=== PATIENT | female | born 1955 | race Two or more races ===

== ENCOUNTER 2018-01-01 03:06 | Inpatient (IN) | payer OTHER ==
[2018-01-01] VITALS (22 sets, daily range): BP systolic 74–127; BP diastolic 34–97
[~2018-01-01] VITALS: Ht 162.6 cm; Wt 69.0 kg
[2018-01-01] MEDS ORDERED: Azithromycin 500 MG in NS 275 ML IV ONE (03:30)
[2018-01-01] MEDS ORDERED: cefTRIAXone 1 GM in NS 55 ML IVPB ONE (03:30)
--- NOTE | 2018-01-01 03:34 | Emergency Room Report ---
History of Present Illness General Chief Complaint: Dyspnea/Respdistress Source: Medical Record Present Illness HPI 62F SN[facility] trach patient referred for pulse ox mid 80's. Pt. is slightly agitated. Cannot give any history. No HPI sent with patient. Paperwork:full code, anoxic brain damage trach G-tube contractures diabetes GERD hypotension seizure Dec 06 WBC 6.8, h/h 13/41, fun/creat 38/.47 Allergies: Coded Allergies: No Known Allergies (Unverified , 01/01/18) Patient History Now: No Nursing Documentation-PMH Hx Diabetes: Yes Hx Gastrointestinal Problems: Yes - GERD Hx Seizures: Yes Review of Systems Constitutional: Reports: see HPI Respiratory: Reports: see HPI, shortness of breath, wheezing All Other Systems: limited Physical Exam Vital Signs Date Time Temp Pulse Resp B/P (MAP) Pulse Ox O2 Delivery O2 Flow Rate FiO2 01/01/18 02:37 98.8 119 17 115/71 86 Simple Mask 15.0 98.8 01/01/18 03:10 60 Sp02 EP Interpretation: abnormal General Appearance: mild distress Head: atraumatic ENT: moist mucus membranes, other - trach Respiratory: rhonchi, other - trach Cardiovascular #1: tachycardia Gastrointestinal: other - g-tube Genitourinary: other - diapers Musculoskeletal: other - contractures all four Neurologic: other - agitated on arrival; after more comfortable, calm Skin: no rash Medical Decision Making Diagnostic Impression: Primary Impression: Dyspnea Additional Impressions: Respiratory distress Tracheostomy complication ER Course The RT changed the trach collar/ties and gauze; pt. much more comfortable and minimal secretions. Pulse ox 100%, breathing slightly over vent. Persistent mild tachy and rectal temp 103. Sepsis labs ordered. Admit MDM: This patient has clinical signs and symptoms concerning for sepsis and severe sepsis. Patient's symptoms have not stabilized and the patient is at risk of decompensation. The patient is admitted for careful hydration, antibiotic therapy, and infectious source control. The patients clinical condition is complicated by the comorbidities noted in the HPI/PMH. Sepsis: HR >90 yes RR >20 yes Temp not(36-38) yes WBC not(4-12) or 10% yes Severe Sepsis criteria: Infectious source: Lactate > 2.0 mmol/L no Hypotension (SBP < 90 or >40 mmHG drop or MAP < 65) no Acute Resp Failure (sat < 92% w/o oxygen) no Brand Marketing Manager > 2.0 no INR > 1.5 no Plt < 100 no Bili > 2 Sepsis Management: Time of recognition of severe sepsis/septic shock: 330 am Within 3 hours of recognition: yes Blood cultures x 2 before broad-spectrum antibiotics: yes 30 ml/kg NS bolus: yes Initial lactate: yes Repeat lactate: yes (indicated as initial lactate < 2.0) Septic Shock Assessment: NOT PRESENT AT THIS TIME Any lactic acid > 4.0 Persistent hypotension (SBP < 90 or 40 mmHg drop, MAP < 65) despite 30 mL/kg IV fluid bolus Accepting Care Team Current data and ongoing care discussed. Time: 6 am Admitting Physician: Dr. Paredes alerted Outstanding Data: The admitting physician is aware that there are pending tests and will follow those results. Critical Care: Critical care time: I spent 35 minutes critical care time including emergent fluid management while maintaining close respiratory support. Provision of immediate and broad-spectrum antibiotic therapy. Simultaneous assessment for possible sources in order to direct targeted therapy. Consideration for invasive and chemical support to prevent cardiopulmonary collapse. EKG Diagnostic Results EKG Time: 03:38 Rate: tachycardiac ST Segments: no acute changes Other Impression sinus tachy 123, possibly old ant NM Rhythm Strip Diag. Results Rhythm Strip Time: 03:39 EP Interpretation: yes Rate: 108 Other Impression sinus tachy 108 Chest X-Ray Diagnostic Results Chest X-Ray Diagnostic Results : # of Views/Limited/Complete: 1 View Indication: Shortness of Breath EP Interpretation: Yes Interpretation: no consolidation, no pneumothorax, other - no definite infiltrate; trach seen Last Vital Signs Date Time Temp Pulse Resp B/P (MAP) Pulse Ox O2 Delivery O2 Flow Rate FiO2 01/01/18 03:11 112 38 60 01/01/18 03:10 Mechanical Ventilator 01/01/18 02:37 98.8 115/71 86 15.0 98.8 Disposition: ADMITTED INPATIENT Condition: Critical Benji West M.D. Jan 01, 2018 03:34
[2018-01-01 03:49] LABS: HEMATOCRIT 40.1 % (37.0-47.0); MEAN CORPUSCULAR VOLUME 83 FL (80-99); PLATELET COUNT 300 K/UL (150-450); RED BLOOD COUNT 4.83 M/UL (4.20-5.40); RED CELL DISTRIBUTION WIDTH 16.3 % (11.6-14.8); WHITE BLOOD COUNT 15.7 K/UL (4.8-10.8)
[2018-01-01 03:59] LABS: INR 1.1 (0.9-1.1)
[2018-01-01 04:00] LABS: ANION GAP 6 mmol/L (5-15); BLOOD UREA NITROGEN 34 mg/dL (7-18); CALCIUM 8.1 MG/DL (8.5-10.1); CARBON DIOXIDE 33 MMOL/L (21-32); CHLORIDE 95 MMOL/L (98-107); CREATININE 0.7 MG/DL (0.55-1.30); SODIUM 134 MMOL/L (136-145)
[2018-01-01 04:05] LABS: ALANINE AMINOTRANSFERASE 53 U/L (12-78); ALBUMIN 2.5 G/DL (3.4-5.0); ALBUMIN/GLOBULIN RATIO 0.5 (1.0-2.7); ALKALINE PHOSPHATASE 231 U/L (46-116); ASPARTATE AMINO TRANSFERASE 58 U/L (15-37); BILIRUBIN,TOTAL 0.6 MG/DL (0.2-1.0); CREATINE KINASE 53 U/L (26-308)
[2018-01-01] MEDS ORDERED: Acetaminophen 650mg/20.3ml NG ONE (04:15)
[2018-01-01 04:46] LABS: APPEARANCE,URINE CLEAR; BILIRUBIN, URINE NEGATIVE (NEGATIVE); GLUCOSE, URINE (UA) NEGATIVE (NEGATIVE); KETONES,URINE NEGATIVE (NEGATIVE); LEUKOCYTE ESTERASE ,URINE NEGATIVE (NEGATIVE); NITRITE,URINE NEGATIVE (NEGATIVE); PH,URINE 7 (4.5-8.0); PROTEIN,URINE 2+ (NEGATIVE); UROBILINOGEN,URINE 1 MG/DL (0.0-1.0)
[2018-01-01 05:04] LABS: COLOR,URINE YELLOW
--- NOTE | 2018-01-01 05:35 | Diagnostic Imaging Report ---
EXAM: XR Chest, 1 View CLINICAL HISTORY: CP TECHNIQUE: Frontal view of the chest. COMPARISON: No relevant prior studies available. FINDINGS: Lungs: Streaky densities in the lower lungs likely atelectasis/scarring. Dense retrocardiac opacity which may reflect atelectasis or developing infiltrate. Pleural space: Tiny left effusion difficult to entirely exclude. No gross pneumothorax. Heart: Prominent cardiopericardial silhouette accentuated by low lung volume and rotated position. Mediastinum: Dense opacity projecting over the left hilar/mediastinal region which may partly reflect overlying artifact. Bones/joints: Unremarkable. Vasculature: Tortuous thoracic aorta noted. Tubes, lines and devices: Tracheostomy tube present. Electrodes/nerve stimulators projecting over the thoracic spine. IMPRESSION: Rotated position and low lung volumes limit evaluation. Probable bibasilar atelectasis. Follow-up recommended to exclude developing retrocardiac infiltrate or tiny left effusion. Borderline cardiomegaly
[2018-01-01] MEDS ORDERED: PHENOBARBI20 MG/5 ML GT (06:11)
[2018-01-01] MEDS ORDERED: LOVENOX40 MG/0.4 SUBQ (06:11)
[2018-01-01] MEDS ORDERED: PRO-AMATINE10 MG ORAL (06:11)
[2018-01-01] MEDS ORDERED: KEPPRA LIQ100 MG/1 M ORAL (06:11)
[2018-01-01] MEDS ORDERED: ALBUTEROL2.5 MG/3 M INH (06:11)
[2018-01-01] MEDS ORDERED: FUROSEMIDE40 MG GT (06:11)
[2018-01-01] MEDS ORDERED: METOLAZONE5 MG GT (06:11)
[2018-01-01] MEDS ORDERED: ZANTAC150 MG GT (06:11)
[2018-01-01] MEDS ORDERED: POTASSIUM CHLO20 ME2 GT (06:11)
[2018-01-01] MEDS ORDERED: IPRATROPIU0.2 MG/1 M HHN (06:11)
[2018-01-01] MEDS ORDERED: ACETAMINOP160 MG/5 M ORAL (06:11)
[2018-01-01] MEDS ORDERED: PERIDEX15 ML MM (06:11)
[2018-01-01] MEDS ORDERED: SYNTHROID50 MCG GT (06:11)
[2018-01-01] MEDS ORDERED: CRANBERRY425 MG GT (06:11)
[2018-01-01] MEDS ORDERED: Ibuprofen Susp 100mg/5ml ORAL ONE (06:15)
[2018-01-01] MEDS ORDERED: Cefepime HCl 2 GM in NS 110 ML IV SCH (07:00)
[2018-01-01] MEDS ORDERED: Miralax 17gm pkt ORAL PRN (09:30)
[2018-01-01] MEDS ORDERED: Morphine Sulfate 4mg/ml Inj (IV USE ONLY) IVP PRN (09:30)
[2018-01-01] MEDS ORDERED: Albuterol/Ipratropium 3ml neb HHN PRN (09:30)
[2018-01-01] MEDS ORDERED: LORazepam Inj 2mg/ml 1ml IV PRN (09:30)
[2018-01-01] MEDS ORDERED: Amikacin Rx to dose MISC PRN (10:15)
--- NOTE | 2018-01-01 10:48 | Consultation ---
Consult Note Consult Note asked to eval for low bp and oliguria 62F SNF trach patient referred for pulse ox mid 80's. Pt. is slightly agitated. Cannot give any history. No HPI sent with patient. 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
[2018-01-01] MEDS: NovoLOG Insulin Flexpen SUBQ SCH ×3 (11:30→23:55)
[2018-01-01] MEDS ORDERED: Vancomycin 1.5 GM/D5W 250ML IVPB ONE (12:00)
[2018-01-01] MEDS ORDERED: Ertapenem 1 GM in NS 55 ML IV SCH ×2 (14:00→16:00)
[2018-01-01] MEDS ORDERED: Amikacin 850 MG in NS 110 ML IV SCH ×2 (15:00→18:00)
--- NOTE | 2018-01-01 15:23 | Pulmonolgy Critical Care Note ---
Critical Care - Asmt/Plan Assessment/Plan: Pulmonary CCM Consultation History of Present Illness 62F SNF trach patient referred for pulse ox mid 80's. Pt. is slightly agitated. Cannot give any history. No HPI sent with patient. Noted to have basal infiltrates, possible retrocardiac infiltarte Patient is full code PMH: anoxic brain damage trach G-tube contractures diabetes GERD hypotension seizure Nov 11 WBC 6.8, h/h 13/41, fun/creat 38/.47 Allergies: Coded Allergies: No Known Allergies (Unverified , 01/01/18) Patient History Now: No Nursing Documentation-PMH Hx Diabetes: Yes Hx Gastrointestinal Problems: Yes - GERD Hx Seizures: Yes Review of Systems Constitutional: Reports: see HPI Respiratory: Reports: see HPI, shortness of breath, wheezing All Other Systems: limited Physical Exam Vital Signs Date Time Temp Pulse Resp B/P (MAP) Pulse Ox O2 Delivery O2 Flow Rate FiO2 01/01/18 02:37 98.8 119 17 115/71 86 Simple Mask 15.0 98.8 01/01/18 03:10 60 Sp02 EP Interpretation: abnormal General Appearance: mild distress Head: atraumatic ENT: moist mucus membranes, other - trach Respiratory: rhonchi, other - trach Cardiovascular #1: tachycardia Gastrointestinal: other - g-tube Genitourinary: other - diapers Musculoskeletal: other - contractures all four Neurologic: other - agitated on arrival; after more comfortable, calm Skin: no rash Medical Decision Making Impression: Dyspnea Respiratory distress, Pneumonia Tracheostomy complication anoxic brain damage Previous tracheostomy G-tube contractures diabetes GERD hypotension seizure Plan Continue current ventilator settings Broad spectrum antibiotics HHN O2 for sats 90-96% 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 Aspiration precautions Sepsis: HR >90 yes RR >20 yes Temp not(36-38) yes WBC not(4-12) or 10% yes Severe Sepsis criteria: Infectious source: Lactate > 2.0 mmol/L no Hypotension (SBP < 90 or >40 mmHG drop or MAP < 65) no Acute Resp Failure (sat < 92% w/o oxygen) no Cosmetologist > 2.0 no INR > 1.5 no Plt < 100 no Bili > 2 Sepsis Management: Time of recognition of severe sepsis/septic shock: 330 am Within 3 hours of recognition: yes Blood cultures x 2 before broad-spectrum antibiotics: yes 30 ml/kg NS bolus: yes Initial lactate: yes Repeat lactate: yes (indicated as initial lactate < 2.0) Septic Shock Assessment: NOT PRESENT AT THIS TIME Any lactic acid > 4.0 Persistent hypotension (SBP < 90 or 40 mmHg drop, MAP < 65) despite 30 mL/kg IV fluid bolus EKG Time: 03:38 Rate: tachycardiac ST Segments: no acute changes Other Impression sinus tachy 123, possibly old ant DC Rhythm Strip Diag. Results Rhythm Strip Time: 03:39 EP Interpretation: yes Rate: 108 Other Impression sinus tachy 108 Chest X-Ray Diagnostic Results Chest X-Ray Diagnostic Results : # of Views/Limited/Complete: 1 View Indication: Shortness of Breath EP Interpretation: Yes Interpretation: no consolidation, no pneumothorax, other - no definite infiltrate; trach seen Last Vital Signs Date Time Temp Pulse Resp B/P (MAP) Pulse Ox O2 Delivery O2 Flow Rate FiO2 01/01/18 03:11 112 38 60 01/01/18 03:10 Mechanical Ventilator 01/01/18 02:37 98.8 115/71 86 15.0 98.8 Critical Care - Objective Last 24 Hour Vital Signs Date Time Temp Pulse Resp B/P (MAP) Pulse Ox O2 Delivery O2 Flow Rate FiO2 01/01/18 14:35 85 16 40 01/01/18 14:00 85 20 111/62 (78) 97 01/01/18 13:00 78 20 101/74 (83) 98 01/01/18 12:46 77 16 40 01/01/18 12:00 50.0 01/01/18 12:00 97.5 75 16 110/81 (91) 98 97.5 01/01/18 12:00 Mechanical Ventilator 01/01/18 11:00 78 20 99/61 (74) 98 01/01/18 10:46 77 18 50 01/01/18 10:00 77 20 96/66 (76) 100 01/01/18 09:31 82 18 50 01/01/18 09:00 81 20 110/81 (91) 99 01/01/18 08:31 85 14 50 01/01/18 08:20 Mechanical Ventilator 01/01/18 08:20 Mechanical Ventilator 01/01/18 08:20 90 01/01/18 08:20 50 01/01/18 08:20 99.5 88 20 127/97 (107) 100 99.5 01/01/18 08:20 50.0 01/01/18 08:12 88 17 60 01/01/18 08:11 99.7 82 15 77/57 100 Mechanical Ventilator 15.0 60 99.7 93 01/01/18 07:50 99.7 93 15 77/57 100 Mechanical Ventilator 15.0 60 99.7 01/01/18 07:15 86 15 60 01/01/18 07:15 79 15 Mechanical Ventilator 60 01/01/18 06:30 102.7 82 20 95/60 100 Mechanical Ventilator 15.0 60 102.7 01/01/18 06:16 102.7 01/01/18 05:26 79 15 60 01/01/18 04:30 105 15 94/77 100 Mechanical Ventilator 15.0 60 01/01/18 04:19 98.8 01/01/18 03:30 60 01/01/18 03:11 112 38 60 01/01/18 03:10 103.3 108 18 98/59 100 Mechanical Ventilator 15.0 60 103.3 01/01/18 03:10 108 18 Mechanical Ventilator 15.0 60 01/01/18 03:10 112 38 Mechanical Ventilator 60 01/01/18 02:37 98.8 119 17 115/71 86 Simple Mask 15.0 98.8 Accucheck: 107 Critical Care - Subjective ROS Limited/Unobtainable: Yes Condition: critical FI02: 40 Vent Support Breath Rate: 16 Vent Support Mode: AC Vent Tidal Volume: 600 Sputum Amount: Moderate PEEP: 5.0 PIP: 36 I&O: Intake and Output 12/31/17 01/01/18 19:00 07:00 Intake Total 0 ml Balance 0 ml Intake Oral 0 ml Kit Light MD Jan 01, 2018 15:23
--- NOTE | 2018-01-01 16:20 | History & Physical ---
History and Physical History & Physicial Dictated for Int Med-Dr Paredes no. [id number]. ICU Miguel Roca MD Jan 01, 2018 16:20
--- NOTE | 2018-01-01 19:19 | Consultation ---
History of Present Illness General Date patient seen: Jan 01, 2018 Time patient seen: 19:12 Chief Complaint: Dyspnea/Respdistress Present Illness HPI Patient brought in by ambulance from [facility] for low O2 saturation. Per EMS patient was at 86% on scene. Patient placed on ventilator upon arrival and trach adjusted, patient SpO2 at 100% on ventilator. Patient is non verbal, which is baseline, non ambulatory. Patient has a trach and a Gtube. Cardiology consulted for elevated troponin and pericardial effusion. Allergies: Coded Allergies: No Known Allergies (Unverified , 01/01/18) Medication History Scheduled Cranberry Extract (Cranberry), 425 MG GT DAILY, (Reported) Enoxaparin (Lovenox), 40 MG SUBQ DAILY, (Reported) Furosemide* (Lasix*), 40 MG GT TWICE A DAY, (Reported) Levetiracetam (Keppra), 10 ML ORAL BID, (Reported) Levothyroxine Sodium (Synthroid), 50 MCG GT DAILY, (Reported) Metolazone (Metolazone), 5 MG GT BID, (Reported) Midodrine (Midodrine HCl), 10 MG ORAL THREE TIMES A DAY, (Reported) Potassium Chloride (Potassium Chloride), 20 MEQ GT DAILY, (Reported) Ranitidine Hcl* (Zantac*), 150 MG GT DAILY, (Reported) Scheduled PRN Acetaminophen 160MG/5ML* (Acetaminophen*), 20.3 ML ORAL THREE TIMES A DAY PRN for Fever/Headache/Mild Pain, (Reported) Albuterol Sulfate* (Albuterol Sulfate Hhn*), 3 ML INH Q3HR PRN for Shortness of Breath, (Reported) Ipratropium Randolph 0.5MG/2.5ML (Ipratropium Randolph 0.5MG/2.5ML), 0.5 MG HHN Q6H PRN for Shortness of Breath, (Reported) Miscellaneous Medications Chlorhexidine Gluconate (Peridex), 15 ML MM, (Reported) Chlorhexidine Gluconate (Peridex), 15 ML MM, (Reported) Phenobarbital (Phenobarbital), 20 MG GT, (Reported) Patient History Healthcare decision maker Shree Anders Resuscitation status Full Code Advanced Directive on File No Physical Exam Last 24 Hour Vital Signs Date Time Temp Pulse Resp B/P (MAP) Pulse Ox O2 Delivery O2 Flow Rate FiO2 01/01/18 19:00 76 16 90/59 (69) 100 01/01/18 18:51 78 16 Mechanical Ventilator 40 01/01/18 18:51 78 16 40 01/01/18 18:00 83 20 94/67 (76) 99 01/01/18 17:25 86 17 40 01/01/18 17:00 71 20 99/54 (69) 99 01/01/18 16:00 Mechanical Ventilator 01/01/18 16:00 79 01/01/18 16:00 98.9 70 16 94/53 (67) 97 98.9 01/01/18 16:00 50.0 01/01/18 15:00 84 20 105/67 (80) 99 01/01/18 14:35 85 16 40 01/01/18 14:00 85 20 111/62 (78) 97 01/01/18 13:00 78 20 101/74 (83) 98 01/01/18 12:46 77 16 40 01/01/18 12:00 50.0 01/01/18 12:00 97.5 75 16 110/81 (91) 98 97.5 01/01/18 12:00 Mechanical Ventilator 01/01/18 12:00 73 01/01/18 11:00 78 20 99/61 (74) 98 01/01/18 10:46 77 18 50 01/01/18 10:00 77 20 96/66 (76) 100 01/01/18 09:31 82 18 50 01/01/18 09:00 81 20 110/81 (91) 99 01/01/18 08:31 85 14 50 01/01/18 08:20 Mechanical Ventilator 01/01/18 08:20 Mechanical Ventilator 01/01/18 08:20 90 01/01/18 08:20 50 01/01/18 08:20 99.5 88 20 127/97 (107) 100 99.5 01/01/18 08:20 50.0 01/01/18 08:12 88 17 60 01/01/18 08:11 99.7 82 15 77/57 100 Mechanical Ventilator 15.0 60 99.7 93 01/01/18 07:50 99.7 93 15 77/57 100 Mechanical Ventilator 15.0 60 99.7 01/01/18 07:15 86 15 60 10/7/18 07:15 79 15 Mechanical Ventilator 60 01/01/18 06:30 102.7 82 20 95/60 100 Mechanical Ventilator 15.0 60 102.7 01/01/18 06:16 102.7 01/01/18 05:26 79 15 60 01/01/18 04:30 105 15 94/77 100 Mechanical Ventilator 15.0 60 01/01/18 04:19 98.8 01/01/18 03:30 60 01/01/18 03:11 112 38 60 01/01/18 03:10 103.3 108 18 98/59 100 Mechanical Ventilator 15.0 60 103.3 01/01/18 03:10 108 18 Mechanical Ventilator 15.0 60 01/01/18 03:10 112 38 Mechanical Ventilator 60 01/01/18 02:37 98.8 119 17 115/71 86 Simple Mask 15.0 98.8 Intake and Output 12/31/17 01/01/18 19:00 07:00 Intake Total 0 ml Balance 0 ml Intake Oral 0 ml Laboratory Tests Test 01/01/18 03:30 01/01/18 04:00 01/01/18 14:40 01/01/18 17:15 White Blood Count 15.7 K/UL (4.8-10.8) H Red Blood Count 4.83 M/UL (4.20-5.40) Hemoglobin 13.0 G/DL (12.0-16.0) Hematocrit 40.1 % (37.0-47.0) Mean Corpuscular Volume 83 FL (80-99) Mean Corpuscular Hemoglobin 27.0 PG (27.0-31.0) Mean Corpuscular Hemoglobin Concent 32.5 G/DL (32.0-36.0) Red Cell Distribution Width 16.3 % (11.6-14.8) H Platelet Count 300 K/UL (150-450) Mean Platelet Volume 7.4 FL (6.5-10.1) Neutrophils (%) (Auto) % (45.0-75.0) Lymphocytes (%) (Auto) % (20.0-45.0) Monocytes (%) (Auto) % (1.0-10.0) Eosinophils (%) (Auto) % (0.0-3.0) Basophils (%) (Auto) % (0.0-2.0) Differential Total Cells Counted 100 Neutrophils % (Manual) 87 % (45-75) H Lymphocytes % (Manual) 6 % (20-45) L Monocytes % (Manual) 6 % (1-10) Eosinophils % (Manual) 0 % (0-3) Basophils % (Manual) 0 % (0-2) Band Neutrophils 1 % (0-8) Platelet Estimate Adequate Platelet Morphology Normal Anisocytosis 1+ Prothrombin Time 11.3 SEC (9.30-11.50) Prothromb Time International Ratio 1.1 (0.9-1.1) Sodium Level 134 MMOL/L (136-145) L Potassium Level 3.0 MMOL/L (3.5-5.1) L Chloride Level 95 MMOL/L (98-107) L Carbon Dioxide Level 33 MMOL/L (21-32) H Anion Gap 6 mmol/L (5-15) Blood Urea Nitrogen 34 mg/dL (7-18) H Creatinine 0.7 MG/DL (0.55-1.30) Estimat Glomerular Filtration Rate > 60 mL/min (>60) Glucose Level 121 MG/DL (74-106) H Lactic Acid Level 1.90 mmol/L (0.4-2.0) Calcium Level 8.1 MG/DL (8.5-10.1) L Total Bilirubin 0.6 MG/DL (0.2-1.0) Aspartate Amino Transf (AST/SGOT) 58 U/L (15-37) H Alanine Aminotransferase (ALT/SGPT) 53 U/L (12-78) Alkaline Phosphatase 231 U/L (46-116) H Total Creatine Kinase 53 U/L (26-308) Troponin I 0.085 ng/mL (0.000-0.056) 0.842 ng/mL (0.000-0.056) C-Reactive Protein, Quantitative 6.5 mg/dL (0.00-0.90) H Total Protein 7.5 G/DL (6.4-8.2) Albumin 2.5 G/DL (3.4-5.0) L Globulin 5.0 g/dL Albumin/Globulin Ratio 0.5 (1.0-2.7) L Phenobarbital Level 27.7 ug/mL (15-40) Urine Color Yellow Urine Appearance Clear Urine pH 7 (4.5-8.0) Urine Specific [place] 1.005 (1.005-1.035) Urine Protein 2+ (NEGATIVE) H Urine Glucose (UA) Negative (NEGATIVE) Urine Ketones Negative (NEGATIVE) Urine Blood Negative (NEGATIVE) Urine Nitrite Negative (NEGATIVE) Urine Bilirubin Negative (NEGATIVE) Urine Urobilinogen 1 MG/DL (0.0-1.0) H Urine Leukocyte Esterase Negative (NEGATIVE) Urine RBC 0-2 /HPF (0 - 2) Urine WBC 0-2 /HPF (0 - 2) Urine Squamous Epithelial Cells Few /LPF (NONE/OCC) Urine Amorphous Sediment Few /LPF (NONE) H Urine Bacteria Occasional /HPF (NONE) Urine Random Sodium 49 mmol/L (20-110) Arterial Blood pH 7.534 (7.350-7.450) Arterial Blood Partial Pressure CO2 25.9 mmHg (35.0-45.0) L Arterial Blood Partial Pressure O2 82.8 mmHg (75.0-100.0) Arterial Blood HCO3 21.4 mmol/L (22.0-26.0) L Arterial Blood Oxygen Saturation 96.1 % (95-100) Arterial Blood Base Excess -0.1 (-2-2) [place] Test Positive Height (Feet): 5 Height (Inches): 4.00 Weight (Pounds): 150 Medications Current Medications Medications (Trade) Dose Ordered Sig/Anthony Route PRN Reason Start Time Stop Time Status Last Admin Dose Admin Acetaminophen (Tylenol) 650 mg Q4H PRN ORAL fever (temp>100.5F) 01/01/18 09:30 01/31/18 09:29 Albuterol/ Ipratropium (Albuterol/ Ipratropium) 3 ml Q4H PRN HHN Shortness of Breath 01/01/18 09:30 01/06/18 09:29 Amikacin Protocol (Amikacin pharmacy to dose) 1 ea DAILY PRN MISC PER RX PROTOCOL 01/01/18 10:15 01/31/18 10:14 Amikacin Sulfate 850 mg/Sodium Chloride 113.4 ml @ 226.8 mls/ hr Q24H IV 01/01/18 18:00 01/08/18 17:59 01/01/18 18:26 Dextrose (Dextrose 50%) 25 ml Q30M PRN IV Hypoglycemia 01/01/18 10:15 01/31/18 10:04 Dextrose (Dextrose 50%) 50 ml Q30M PRN IV hypoglycemia 01/01/18 10:15 01/31/18 10:14 Ertapenem 1 gm/ Sodium Chloride 55 ml @ 110 mls/hr Q24H IV 01/01/18 16:00 01/06/18 15:59 01/01/18 17:30 Heparin Sodium (Porcine) (Heparin 5000 units/ml) 5,000 units EVERY 12 HOURS SUBQ 01/01/18 21:00 01/31/18 20:59 Insulin Aspart (NovoLOG) EVERY 6 HOURS SUBQ 01/02/18 00:00 01/31/18 11:29 Lorazepam (Ativan 2mg/ml 1ml) 2 mg Q2H PRN IV For Anxiety 01/01/18 09:30 01/08/18 09:29 Norepinephrine Bitartrate 4 mg/ Dextrose 254 ml @ 0 mls/hr Q24H IV 01/01/18 10:00 01/31/18 09:59 Ondansetron HCl (Zofran) 4 mg Q6H PRN IVP Nausea & Vomiting 01/01/18 09:30 01/31/18 09:29 Pantoprazole (Protonix) 40 mg DAILY IVP 01/02/18 09:00 02/01/18 08:59 Polyethylene Glycol (Miralax) 17 gm DAILYPRN PRN ORAL Constipation 01/01/18 09:30 01/31/18 09:29 Potassium Chloride 100 ml @ 100 mls/hr ONCE IVPB 01/01/18 18:41 01/01/18 19:41 Sodium Chloride 1,000 ml @ 150 mls/hr Q6H40M IVLG 01/01/18 12:30 01/31/18 12:29 01/01/18 12:30 Vancomycin HCl (Vanco rx to dose) 1 ea DAILY PRN MISC PER RX PROTOCOL 01/01/18 10:15 01/31/18 10:14 Vancomycin/Sodium Chloride 250 ml @ 166.667 mls/hr Q12HR@0000,1200 IVPB 01/02/18 00:00 01/07/18 00:00 Assessment/Plan Status: stable Assessment/Plan Assessment: anoxic brain damage trach/G-tube contractures diabetes GERD hypotension seizure septic shock PNA electrolyte abnormalities Hypoalbuminemia , Proteinuria Plan: Echocardiogram reviewed, no indication for pericardiocentesis IV fluids to increase intracardiac pressures Monitor hemodynamics. Serial EKG/Troponin - may need heparin if troponin continues to rise No indication for cath Follow cultures IV Abx Pressors prn Monitor urine output Supportive care Kit Campuzano MD Jan 01, 2018 19:19
[2018-01-01] MEDS: Heparin 5000 units/ml inj SUBQ SCH (21:00)
--- NOTE | 2018-01-01 22:04 | Consultation ---
Consult Note Consult Note [id number] Jh Johns MD Jan 01, 2018 22:04
[2018-01-01] MEDS: Cefepime HCl 2 GM in D5W 55 ML IVPB SCH (22:45)
[2018-01-01] MEDS ORDERED: Vancomycin 1 GM in D5W 275 ML IV SCH (23:45)
[2018-01-02] VITALS (15 sets, daily range): BP systolic 93–122; BP diastolic 48–82
[2018-01-02] MEDS ORDERED: Vancomycin 750mg/NS 250ml IVPB SCH
[2018-01-02] MEDS: NovoLOG Insulin Flexpen SUBQ SCH ×3 (05:57→17:02)
[2018-01-02 06:25] LABS: BASOPHILS % (AUTO) 0.4 % (0.0-2.0); EOSINOPHILS % (AUTO) 0.1 % (0.0-3.0); HEMATOCRIT 39.4 % (37.0-47.0); HEMOGLOBIN 12.9 G/DL (12.0-16.0); LYMPHOCYTES % (AUTO) 14.2 % (20.0-45.0); MEAN CORPUSCULAR VOLUME 84 FL (80-99); MONOCYTES % (AUTO) 8.2 % (1.0-10.0); NEUTROPHILS % (AUTO) 77.2 % (45.0-75.0); PLATELET COUNT 270 K/UL (150-450); WHITE BLOOD COUNT 9.7 K/UL (4.8-10.8)
[2018-01-02 06:47] LABS: IRON 33 ug/dL (50-175); TOTAL IRON BINDING CAPACITY 348 ug/dL (250-450)
[2018-01-02 06:53] LABS: % IRON SATURATION 9 % (15-50)
[2018-01-02 06:54] LABS: ALANINE AMINOTRANSFERASE 41 U/L (12-78); ALBUMIN 2.1 G/DL (3.4-5.0); ALBUMIN/GLOBULIN RATIO 0.5 (1.0-2.7); ALKALINE PHOSPHATASE 199 U/L (46-116); ANION GAP 12 mmol/L (5-15); ASPARTATE AMINO TRANSFERASE 45 U/L (15-37); BILIRUBIN,TOTAL 0.5 MG/DL (0.2-1.0); BLOOD UREA NITROGEN 32 mg/dL (7-18); CALCIUM 7.8 MG/DL (8.5-10.1); CARBON DIOXIDE 23 MMOL/L (21-32); CHLORIDE 103 MMOL/L (98-107); CHOLESTEROL 138 MG/DL (< 200); CREATININE 0.8 MG/DL (0.55-1.30); FERRITIN 71 NG/ML (8-388); HDL CHOLESTEROL 27 MG/DL (40-60); POTASSIUM 3.3 MMOL/L (3.5-5.1); SODIUM 138 MMOL/L (136-145); TRIGLYCERIDES 90 MG/DL (30-150)
[2018-01-02 07:44] LABS: GAMMA GLUTAMYL TRANSPEPTIDASE 403 U/L (5-85); PHOSPHORUS 2.6 MG/DL (2.5-4.9)
[2018-01-02] MEDS: Heparin 5000 units/ml inj SUBQ SCH ×2 (08:52→20:16)
[2018-01-02] MEDS ORDERED: Pantoprazole Inj IVP SCH (09:00)
[2018-01-02] MEDS: Cefepime HCl 2 GM in D5W 55 ML IVPB SCH ×2 (09:00→21:00)
--- NOTE | 2018-01-02 09:26 | Cardiology Report ---
APPROVED REPORT EXAM: Two-dimensional and M-mode echocardiogram with Doppler and color Doppler. INDICATION EJECTION FRACTION M-Mode DIMENSIONS IVSd1.5 (0.7-1.1cm)Left Atrium (MM)2.8 (1.6-4.0cm) LVDd2.4 (3.5-5.6cm)Aortic Root3.1 (2.0-3.7cm) PWd1.8 (0.7-1.1cm)Aortic Cusp Exc.0.9 (1.5-2.0cm) IVSs1.3 cm LVDs1.8 (2.5-4.0cm) PWs1.3 cm Technically difficult study due to poor acoustical windows. Normal left ventricular chamber size, systolic function and wall motion. Left ventricular ejection fraction estimated to be 55%. Mild left ventricular hypertrophy by 2-D. Moderate pericardial effusion present with evidence of left atrial collapse, suggestive of pericardial tamponade. Normal left atrial chamber size Moderate to severe Right atrial and right ventricular enlargement with D- shaped septum is suggestive of increaed pressure and volume overload. Focal aortic valve sclerosis with reduced cusp excursion, suggestive moderate severe aortic stenosis . Thickened mitral valve leaflets with normal excursion. Mitral annulus and aortic root calcification. Pulmonic valve not well visualized. Normal tricuspid valve structure. IVC dilated at size 2.0 without physiological collapse suggestive increase RA pressure . A color flow and spectral Doppler study was performed and revealed: Moderate aortic insufficiency. Peak aortic valve gradient of 49 mm Hg and a mean of 32 mmHg. Aortic valve area 1.0 cm2 calculated by continuity equation. Mild mitral regurgitation. Mitral diastolic velocities suggest reduced left ventricular relaxation c/w mild LV diastolic dysfunction (Grade I ). Transmitral flow velocity do not vary with respiratory cycles. Moderate tricuspid regurgitation. Tricuspid systolic velocities suggests peak right ventricular systolic pressure of 71mmHg consistent with severe pulmonary hypertension .
--- NOTE | 2018-01-02 10:01 | Pulmonolgy Critical Care Note ---
Critical Care - Asmt/Plan Problems: (1) Acute on chronic respiratory failure (2) Pneumonia (3) Vegetative state (4) Anoxic brain damage (5) Feeding by G-tube (6) Diabetes mellitus Respiratory: monitor respiratory rate, adjust FIO2 Cardiac: continue to monitor HR/BP Renal: F/U I&O, keep IV fluid Infectious Disease: check cultures Gastrointestinal: continue feedings/current rate Endocrine: monitor blood sugar, check HgA1C Neurologic: PRN Ativan Prophylaxis: Heparin Notes Reviewed: lock setter, cardio Discussed with: nurses, consultants, caseworker protective servicescondominium manager - Objective Last 24 Hour Vital Signs Date Time Temp Pulse Resp B/P (MAP) Pulse Ox O2 Delivery O2 Flow Rate FiO2 01/02/18 09:00 81 16 93/59 (70) 100 01/02/18 08:57 94 18 40 01/02/18 08:00 98.9 77 16 98/50 (66) 100 98.9 01/02/18 08:00 85 01/02/18 08:00 Mechanical Ventilator 01/02/18 08:00 40 01/02/18 07:05 91 16 40 01/02/18 07:03 89 16 Mechanical Ventilator 40 01/02/18 07:00 80 16 99/48 (65) 100 01/02/18 06:00 91 16 114/68 (83) 100 01/02/18 05:10 94 18 40 01/02/18 05:00 92 16 100/57 (71) 100 01/02/18 04:00 40 01/02/18 04:00 91 01/02/18 04:00 Mechanical Ventilator 01/02/18 04:00 97.6 87 16 101/63 (76) 100 97.6 01/02/18 03:02 92 16 40 01/02/18 03:00 90 16 122/68 (86) 100 01/02/18 02:00 85 16 93/49 (64) 100 01/02/18 01:00 88 16 98/68 (78) 100 01/02/18 00:56 87 16 40 01/02/18 00:00 Mechanical Ventilator 01/02/18 00:00 97.2 85 16 98/64 (75) 100 97.2 01/01/18 23:00 89 16 104/75 (85) 100 01/01/18 22:36 90 16 40 01/01/18 22:00 88 16 98/74 (82) 98 01/01/18 21:30 84 16 109/56 (73) 100 01/01/18 21:10 90 16 40 01/01/18 21:00 89 16 104/65 (78) 100 01/01/18 20:30 80 16 74/59 (64) 100 01/01/18 20:00 97.8 74 16 90/34 (52) 100 97.8 01/01/18 20:00 40 01/01/18 20:00 Mechanical Ventilator 01/01/18 20:00 87 01/01/18 19:00 76 16 90/59 (69) 100 01/01/18 18:51 78 16 Mechanical Ventilator 40 01/01/18 18:51 78 16 40 01/01/18 18:00 83 20 94/67 (76) 99 01/01/18 17:25 86 17 40 01/01/18 17:00 71 20 99/54 (69) 99 01/01/18 16:00 Mechanical Ventilator 01/01/18 16:00 79 01/01/18 16:00 98.9 70 16 94/53 (67) 97 98.9 01/01/18 16:00 50.0 01/01/18 15:00 84 20 105/67 (80) 99 01/01/18 14:35 85 16 40 01/01/18 14:00 85 20 111/62 (78) 97 01/01/18 13:00 78 20 101/74 (83) 98 01/01/18 12:46 77 16 40 01/01/18 12:00 50.0 01/01/18 12:00 97.5 75 16 110/81 (91) 98 97.5 01/01/18 12:00 Mechanical Ventilator 01/01/18 12:00 73 01/01/18 11:00 78 20 99/61 (74) 98 01/01/18 10:46 77 18 50 01/01/18 10:00 77 20 96/66 (76) 100 Status: awake Condition: critical HEENT: atraumatic Lungs: clear Heart: HR/BP stable Abdomen: soft, active bowel sounds Extremities: no C/C/E Decubiti: location Micro: Microbiology Date/Time Source Procedure Growth Status 01/01/18 03:30 Blood Blood Culture - Preliminary NO GROWTH AFTER 24 HOURS Resulted 01/01/18 03:15 Blood Blood Culture - Preliminary NO GROWTH AFTER 24 HOURS Resulted Accucheck: 103 Critical Care - Subjective Condition: critical EKG Rhythm: Sinus Rhythm FI02: 40 Vent Support Breath Rate: 16 Vent Support Mode: AC Vent Tidal Volume: 600 Sputum Amount: Small PEEP: 5.0 PIP: 31 Tube Feeding Amount: 10 I&O: Intake and Output 01/01/18 01/02/18 19:00 07:00 Intake Total 1025 ml 2003.4 ml Output Total 740 ml 710 ml Balance 285 ml 1293.4 ml IV Total 1025 ml 1983.4 ml Tube Feeding 20 ml Output Urine Total 740 ml 710 ml # Bowel Movements 2 2 CXR: trach in place Labs: Laboratory Tests Test 01/01/18 14:40 01/01/18 17:15 01/02/18 04:00 01/02/18 08:24 Arterial Blood pH 7.534 (7.350-7.450) 7.548 (7.350-7.450) Arterial Blood Partial Pressure CO2 25.9 mmHg (35.0-45.0) L 26.9 mmHg (35.0-45.0) L Arterial Blood Partial Pressure O2 82.8 mmHg (75.0-100.0) 93.1 mmHg (75.0-100.0) Arterial Blood HCO3 21.4 mmol/L (22.0-26.0) L 22.9 mmol/L (22.0-26.0) Arterial Blood Oxygen Saturation 96.1 % (95-100) 97.2 % (95-100) Arterial Blood Base Excess -0.1 (-2-2) 1.6 (-2-2) [place] Test Positive Positive Troponin I 0.842 ng/mL (0.000-0.056) 0.366 ng/mL (0.000-0.056) White Blood Count 9.7 K/UL (4.8-10.8) Red Blood Count 4.70 M/UL (4.20-5.40) Hemoglobin 12.9 G/DL (12.0-16.0) Hematocrit 39.4 % (37.0-47.0) Mean Corpuscular Volume 84 FL (80-99) Mean Corpuscular Hemoglobin 27.4 PG (27.0-31.0) Mean Corpuscular Hemoglobin Concent 32.7 G/DL (32.0-36.0) Red Cell Distribution Width 17.0 % (11.6-14.8) H Platelet Count 270 K/UL (150-450) Mean Platelet Volume 7.7 FL (6.5-10.1) Neutrophils (%) (Auto) 77.2 % (45.0-75.0) H Lymphocytes (%) (Auto) 14.2 % (20.0-45.0) L Monocytes (%) (Auto) 8.2 % (1.0-10.0) Eosinophils (%) (Auto) 0.1 % (0.0-3.0) Basophils (%) (Auto) 0.4 % (0.0-2.0) Sodium Level 138 MMOL/L (136-145) Potassium Level 3.3 MMOL/L (3.5-5.1) L Chloride Level 103 MMOL/L (98-107) Carbon Dioxide Level 23 MMOL/L (21-32) Anion Gap 12 mmol/L (5-15) Blood Urea Nitrogen 32 mg/dL (7-18) H Creatinine 0.8 MG/DL (0.55-1.30) Estimat Glomerular Filtration Rate > 60 mL/min (>60) Glucose Level 119 MG/DL (74-106) H Hemoglobin A1c 6.0 % (4.3-6.0) Lactic Acid Level 2.00 mmol/L (0.4-2.0) Uric Acid 7.1 MG/DL (2.6-7.2) Calcium Level 7.8 MG/DL (8.5-10.1) L Phosphorus Level 2.6 MG/DL (2.5-4.9) Magnesium Level 1.8 MG/DL (1.8-2.4) Iron Level 33 ug/dL (50-175) L Total Iron Binding Capacity 348 ug/dL (250-450) Percent Iron Saturation 9 % (15-50) L Unsaturated Iron Binding 315 ug/dL (112-346) Ferritin 71 NG/ML (8-388) Total Bilirubin 0.5 MG/DL (0.2-1.0) Gamma Glutamyl Transpeptidase 403 U/L (5-85) H Aspartate Amino Transf (AST/SGOT) 45 U/L (15-37) H Alanine Aminotransferase (ALT/SGPT) 41 U/L (12-78) Alkaline Phosphatase 199 U/L (46-116) H Pro-B-Type Natriuretic Peptide 5851 pg/mL (0-125) H Total Protein 6.7 G/DL (6.4-8.2) Albumin 2.1 G/DL (3.4-5.0) L Globulin 4.6 g/dL Albumin/Globulin Ratio 0.5 (1.0-2.7) L Triglycerides Level 90 MG/DL (30-150) Cholesterol Level 138 MG/DL (< 200) LDL Cholesterol 95 mg/dL (<100) HDL Cholesterol 27 MG/DL (40-60) L Cholesterol/HDL Ratio 5.1 (3.3-4.4) H Vitamin B12 Level 1068 PG/ML (193-986) H Folate 45.6 NG/ML (8.6-58.9) Thyroid Stimulating Hormone (TSH) 4.743 uiU/mL (0.358-3.740) Cortisol AM Sample Pending Random Amikacin Level < 2.6 ug/mL Vancomycin Level Trough 19.2 ug/mL (5.0-12.0) H James Walter MD Jan 02, 2018 10:01
--- NOTE | 2018-01-02 11:00 | Diagnostic Imaging Report ---
Indication: Dyspnea Comparison: 01/01/2018 A single view chest radiograph was obtained. Findings: There is a retrocardiac opacity silhouetting out the left hemidiaphragm. Tracheostomy is noted. Spinal stimulation wires are present in the mid thoracic spine as well as in the upper thoracic spine. The bones are osteopenic. Extensive surgical clips noted in the upper abdomen. IMPRESSION: Suspected left basilar pneumonia versus atelectasis. Correlate clinically.
--- NOTE | 2018-01-02 11:41 | Nephrology Progress Note ---
Assessment/Plan Problem List: (1) Septic shock (2) Acute on chronic respiratory failure (3) Seizure disorder (4) Feeding by G-tube Assessment Septic shock Dyspnea / Pneumonia Respiratory distress Tracheostomy complication electrolyte abnormalities Hypoalbuminemia , Proteinuria Plan Albumin-bolus as needed IV Fluids , K supplement- Antibiotics pressors / Midodrine pulm support per orders Objective Objective Last 24 Hour Vital Signs Date Time Temp Pulse Resp B/P (MAP) Pulse Ox O2 Delivery O2 Flow Rate FiO2 01/02/18 11:00 78 18 104/64 (77) 100 01/02/18 10:42 74 16 40 01/02/18 10:00 75 17 98/60 (73) 100 01/02/18 10:00 98/60 01/02/18 09:00 81 16 93/59 (70) 100 01/02/18 08:57 94 18 40 01/02/18 08:00 98.9 77 16 98/50 (66) 100 98.9 01/02/18 08:00 85 01/02/18 08:00 Mechanical Ventilator 01/02/18 08:00 40 01/02/18 07:05 91 16 40 01/02/18 07:03 89 16 Mechanical Ventilator 40 01/02/18 07:00 80 16 99/48 (65) 100 01/02/18 06:00 91 16 114/68 (83) 100 01/02/18 05:10 94 18 40 01/02/18 05:00 92 16 100/57 (71) 100 01/02/18 04:00 40 01/02/18 04:00 91 01/02/18 04:00 Mechanical Ventilator 01/02/18 04:00 97.6 87 16 101/63 (76) 100 97.6 01/02/18 03:02 92 16 40 01/02/18 03:00 90 16 122/68 (86) 100 01/02/18 02:00 85 16 93/49 (64) 100 01/02/18 01:00 88 16 98/68 (78) 100 01/02/18 00:56 87 16 40 01/02/18 00:00 Mechanical Ventilator 01/02/18 00:00 97.2 85 16 98/64 (75) 100 97.2 01/01/18 23:00 89 16 104/75 (85) 100 10/7/18 22:36 90 16 40 01/01/18 22:00 88 16 98/74 (82) 98 01/01/18 21:30 84 16 109/56 (73) 100 01/01/18 21:10 90 16 40 01/01/18 21:00 89 16 104/65 (78) 100 01/01/18 20:30 80 16 74/59 (64) 100 01/01/18 20:00 97.8 74 16 90/34 (52) 100 97.8 01/01/18 20:00 40 01/01/18 20:00 Mechanical Ventilator 01/01/18 20:00 87 01/01/18 19:00 76 16 90/59 (69) 100 01/01/18 18:51 78 16 Mechanical Ventilator 40 01/01/18 18:51 78 16 40 01/01/18 18:00 83 20 94/67 (76) 99 01/01/18 17:25 86 17 40 01/01/18 17:00 71 20 99/54 (69) 99 01/01/18 16:00 Mechanical Ventilator 01/01/18 16:00 79 01/01/18 16:00 98.9 70 16 94/53 (67) 97 98.9 01/01/18 16:00 50.0 01/01/18 15:00 84 20 105/67 (80) 99 01/01/18 14:35 85 16 40 01/01/18 14:00 85 20 111/62 (78) 97 01/01/18 13:00 78 20 101/74 (83) 98 01/01/18 12:46 77 16 40 01/01/18 12:00 50.0 01/01/18 12:00 97.5 75 16 110/81 (91) 98 97.5 01/01/18 12:00 Mechanical Ventilator 01/01/18 12:00 73 Intake and Output 01/01/18 01/02/18 19:00 07:00 Intake Total 1025 ml 2003.4 ml Output Total 740 ml 710 ml Balance 285 ml 1293.4 ml IV Total 1025 ml 1983.4 ml Tube Feeding 20 ml Output Urine Total 740 ml 710 ml # Bowel Movements 2 2 Laboratory Tests 01/01/18 14:40: Arterial Blood pH 7.534H, Arterial Blood Partial Pressure CO2 25.9L, Arterial Blood Partial Pressure O2 82.8, Arterial Blood HCO3 21.4L, Arterial Blood Oxygen Saturation 96.1, Arterial Blood Base Excess -0.1, [place] Test Positive 01/01/18 17:15: Troponin I 0.842H 01/02/18 04:00: Troponin I 0.366H, White Blood Count 9.7, Red Blood Count 4.70, Hemoglobin 12.9 , Hematocrit 39.4, Mean Corpuscular Volume 84, Mean Corpuscular Hemoglobin 27.4 , Mean Corpuscular Hemoglobin Concent 32.7, Red Cell Distribution Width 17.0H, Platelet Count 270, Mean Platelet Volume 7.7, Neutrophils (%) (Auto) 77.2H, Lymphocytes (%) (Auto) 14.2L, Monocytes (%) (Auto) 8.2, Eosinophils (%) (Auto) 0.1, Basophils (%) (Auto) 0.4, Sodium Level 138, Potassium Level 3.3L, Chloride Level 103, Carbon Dioxide Level 23, Anion Gap 12, Blood Urea Nitrogen 32H, Creatinine 0.8, Estimat Glomerular Filtration Rate > 60, Glucose Level 119H, Hemoglobin A1c 6.0, Lactic Acid Level 2.00, Uric Acid 7.1, Calcium Level 7.8L, Phosphorus Level 2.6, Magnesium Level 1.8, Iron Level 33L, Total Iron Binding Capacity 348, Percent Iron Saturation 9L, Unsaturated Iron Binding 315, Ferritin 71, Total Bilirubin 0.5, Gamma Glutamyl Transpeptidase 403H, Aspartate Amino Transf (AST/SGOT) 45H, Alanine Aminotransferase (ALT/SGPT) 41, Alkaline Phosphatase 199H, Pro-B-Type Natriuretic Peptide 5851H, Total Protein 6.7, Albumin 2.1L, Globulin 4.6, Albumin/Globulin Ratio 0.5L, Triglycerides Level 90 , Cholesterol Level 138, LDL Cholesterol 95, HDL Cholesterol 27L, Cholesterol/ HDL Ratio 5.1H, Vitamin B12 Level 1068H, Folate 45.6, Thyroid Stimulating Hormone (TSH) 4.743H, Cortisol AM Sample [Pending], Random Amikacin Level < 2.6 , Vancomycin Level Trough 19.2H 01/02/18 08:24: Arterial Blood pH 7.548H, Arterial Blood Partial Pressure CO2 26.9L, Arterial Blood Partial Pressure O2 93.1, Arterial Blood HCO3 22.9, Arterial Blood Oxygen Saturation 97.2, Arterial Blood Base Excess 1.6, [place] Test Positive Height (Feet): 5 Height (Inches): 4.00 Weight (Pounds): 155 General Appearance: no apparent distress, lethargic Cardiovascular: normal rate Respiratory/Chest: decreased breath sounds Abdomen: distended Extremities: other - edematous Rocael Samuels MD Jan 02, 2018 11:41
[2018-01-02] MEDS ORDERED: LORazepam Inj 2mg/ml 1ml IV PRN (12:00)
[2018-01-02] MEDS ORDERED: Albuterol/Ipratropium 3ml neb HHN PRN (12:00)
[2018-01-02] MEDS ORDERED: Midodrine 10mg tab GT SCH (13:00)
[2018-01-02] MEDS: Midodrine 10mg tab GT SCH ×2 (13:29→17:08)
[2018-01-02] MEDS: Vancomycin 750mg/NS 250ml 250 ML IVPB SCH (13:30)
--- NOTE | 2018-01-02 13:49 | Infectious Diseases Prog Note ---
Assessment/Plan Assessment/Plan Assessment: Sepsis 2ry to PNA/HAP -01/02 CXR: Suspected left basilar pneumonia versus atelectasis. Correlate clinically. Fever, improving Leukocytosis, SP Elevated tropoonin Acute on chronic resp failure/ trach dependant DM2 Dysphagia s/p GT Seizure disorder Chronic encephalopathy 2ry to anoxic brain damage contractures GERD Plan: -Continue IV Vanco and Cefepime #2 -f/u cx -Montior CBC/CMP, temperatures -aspiration precautions Discussed with RN. Subjective Allergies: Coded Allergies: No Known Allergies (Unverified , 01/01/18) Subjective afebrile >24hrs leukocytosis resolved Objective Vital Signs Last 24 Hour Vital Signs Date Time Temp Pulse Resp B/P (MAP) Pulse Ox O2 Delivery O2 Flow Rate FiO2 01/02/18 12:37 84 16 40 01/02/18 12:00 Mechanical Ventilator 01/02/18 12:00 97.7 83 16 105/66 (79) 96 97.7 01/02/18 12:00 40 01/02/18 11:00 78 18 104/64 (77) 100 01/02/18 10:42 74 16 40 01/02/18 10:00 75 17 98/60 (73) 100 01/02/18 10:00 98/60 01/02/18 09:00 81 16 93/59 (70) 100 01/02/18 08:57 94 18 40 01/02/18 08:00 98.9 77 16 98/50 (66) 100 98.9 01/02/18 08:00 85 01/02/18 08:00 Mechanical Ventilator 01/02/18 08:00 40 01/02/18 07:05 91 16 40 01/02/18 07:03 89 16 Mechanical Ventilator 40 01/02/18 07:00 80 16 99/48 (65) 100 01/02/18 06:00 91 16 114/68 (83) 100 01/02/18 05:10 94 18 40 01/02/18 05:00 92 16 100/57 (71) 100 01/02/18 04:00 40 01/02/18 04:00 91 01/02/18 04:00 Mechanical Ventilator 01/02/18 04:00 97.6 87 16 101/63 (76) 100 97.6 01/02/18 03:02 92 16 40 01/02/18 03:00 90 16 122/68 (86) 100 01/02/18 02:00 85 16 93/49 (64) 100 01/02/18 01:00 88 16 98/68 (78) 100 01/02/18 00:56 87 16 40 01/02/18 00:00 Mechanical Ventilator 01/02/18 00:00 97.2 85 16 98/64 (75) 100 97.2 01/01/18 23:00 89 16 104/75 (85) 100 01/01/18 22:36 90 16 40 01/01/18 22:00 88 16 98/74 (82) 98 01/01/18 21:30 84 16 109/56 (73) 100 01/01/18 21:10 90 16 40 01/01/18 21:00 89 16 104/65 (78) 100 01/01/18 20:30 80 16 74/59 (64) 100 01/01/18 20:00 97.8 74 16 90/34 (52) 100 97.8 01/01/18 20:00 40 01/01/18 20:00 Mechanical Ventilator 01/01/18 20:00 87 01/01/18 19:00 76 16 90/59 (69) 100 01/01/18 18:51 78 16 Mechanical Ventilator 40 01/01/18 18:51 78 16 40 01/01/18 18:00 83 20 94/67 (76) 99 01/01/18 17:25 86 17 40 01/01/18 17:00 71 20 99/54 (69) 99 01/01/18 16:00 Mechanical Ventilator 01/01/18 16:00 79 01/01/18 16:00 98.9 70 16 94/53 (67) 97 98.9 01/01/18 16:00 50.0 01/01/18 15:00 84 20 105/67 (80) 99 01/01/18 14:35 85 16 40 01/01/18 14:00 85 20 111/62 (78) 97 Height (Feet): 5 Height (Inches): 4.00 Weight (Pounds): 155 Objective Status: awake Condition: critical HEENT: atraumatic Lungs: clear Heart: HR/BP stable Abdomen: soft, active bowel sounds Extremities: no C/C/E Decubiti: location Microbiology Date/Time Source Procedure Growth Status 01/01/18 03:30 Blood Blood Culture - Preliminary NO GROWTH AFTER 24 HOURS Resulted 01/01/18 03:15 Blood Blood Culture - Preliminary NO GROWTH AFTER 24 HOURS Resulted Laboratory Tests Test 01/01/18 14:40 01/01/18 17:15 01/02/18 04:00 01/02/18 08:24 Arterial Blood pH 7.534 (7.350-7.450) 7.548 (7.350-7.450) Arterial Blood Partial Pressure CO2 25.9 mmHg (35.0-45.0) L 26.9 mmHg (35.0-45.0) L Arterial Blood Partial Pressure O2 82.8 mmHg (75.0-100.0) 93.1 mmHg (75.0-100.0) Arterial Blood HCO3 21.4 mmol/L (22.0-26.0) L 22.9 mmol/L (22.0-26.0) Arterial Blood Oxygen Saturation 96.1 % (95-100) 97.2 % (95-100) Arterial Blood Base Excess -0.1 (-2-2) 1.6 (-2-2) [place] Test Positive Positive Troponin I 0.842 ng/mL (0.000-0.056) 0.366 ng/mL (0.000-0.056) White Blood Count 9.7 K/UL (4.8-10.8) Red Blood Count 4.70 M/UL (4.20-5.40) Hemoglobin 12.9 G/DL (12.0-16.0) Hematocrit 39.4 % (37.0-47.0) Mean Corpuscular Volume 84 FL (80-99) Mean Corpuscular Hemoglobin 27.4 PG (27.0-31.0) Mean Corpuscular Hemoglobin Concent 32.7 G/DL (32.0-36.0) Red Cell Distribution Width 17.0 % (11.6-14.8) H Platelet Count 270 K/UL (150-450) Mean Platelet Volume 7.7 FL (6.5-10.1) Neutrophils (%) (Auto) 77.2 % (45.0-75.0) H Lymphocytes (%) (Auto) 14.2 % (20.0-45.0) L Monocytes (%) (Auto) 8.2 % (1.0-10.0) Eosinophils (%) (Auto) 0.1 % (0.0-3.0) Basophils (%) (Auto) 0.4 % (0.0-2.0) Sodium Level 138 MMOL/L (136-145) Potassium Level 3.3 MMOL/L (3.5-5.1) L Chloride Level 103 MMOL/L (98-107) Carbon Dioxide Level 23 MMOL/L (21-32) Anion Gap 12 mmol/L (5-15) Blood Urea Nitrogen 32 mg/dL (7-18) H Creatinine 0.8 MG/DL (0.55-1.30) Estimat Glomerular Filtration Rate > 60 mL/min (>60) Glucose Level 119 MG/DL (74-106) H Hemoglobin A1c 6.0 % (4.3-6.0) Lactic Acid Level 2.00 mmol/L (0.4-2.0) Uric Acid 7.1 MG/DL (2.6-7.2) Calcium Level 7.8 MG/DL (8.5-10.1) L Phosphorus Level 2.6 MG/DL (2.5-4.9) Magnesium Level 1.8 MG/DL (1.8-2.4) Iron Level 33 ug/dL (50-175) L Total Iron Binding Capacity 348 ug/dL (250-450) Percent Iron Saturation 9 % (15-50) L Unsaturated Iron Binding 315 ug/dL (112-346) Ferritin 71 NG/ML (8-388) Total Bilirubin 0.5 MG/DL (0.2-1.0) Gamma Glutamyl Transpeptidase 403 U/L (5-85) H Aspartate Amino Transf (AST/SGOT) 45 U/L (15-37) H Alanine Aminotransferase (ALT/SGPT) 41 U/L (12-78) Alkaline Phosphatase 199 U/L (46-116) H C-Reactive Protein, Quantitative 11.5 mg/dL (0.00-0.90) H Pro-B-Type Natriuretic Peptide 5851 pg/mL (0-125) H Total Protein 6.7 G/DL (6.4-8.2) Albumin 2.1 G/DL (3.4-5.0) L Globulin 4.6 g/dL Albumin/Globulin Ratio 0.5 (1.0-2.7) L Triglycerides Level 90 MG/DL (30-150) Cholesterol Level 138 MG/DL (< 200) LDL Cholesterol 95 mg/dL (<100) HDL Cholesterol 27 MG/DL (40-60) L Cholesterol/HDL Ratio 5.1 (3.3-4.4) H Vitamin B12 Level 1068 PG/ML (193-986) H Folate 45.6 NG/ML (8.6-58.9) Thyroid Stimulating Hormone (TSH) 4.743 uiU/mL (0.358-3.740) Cortisol AM Sample 21.4 UG/DL Random Amikacin Level < 2.6 ug/mL Vancomycin Level Trough 19.2 ug/mL (5.0-12.0) H Current Medications Medications (Trade) Dose Ordered Sig/Anthony Route PRN Reason Start Time Stop Time Status Last Admin Dose Admin Acetaminophen (Tylenol) 650 mg Q4H PRN ORAL fever (temp>100.5F) 01/02/18 12:00 01/31/18 11:59 Albuterol/ Ipratropium (Albuterol/ Ipratropium) 3 ml Q4H PRN HHN Shortness of Breath 01/02/18 12:00 01/06/18 11:59 Cefepime HCl 2 gm/ Dextrose 55 ml @ 110 mls/hr EVERY 12 HOURS IVPB 01/02/18 21:00 01/08/18 22:14 Dextrose (Dextrose 50%) 25 ml Q30M PRN IV Hypoglycemia 01/02/18 12:15 01/31/18 10:04 Dextrose (Dextrose 50%) 50 ml Q30M PRN IV hypoglycemia 01/02/18 12:15 01/31/18 10:14 Famotidine (Pepcid I.v.) 20 mg Q12HR IVP 01/02/18 21:00 02/01/18 20:59 Heparin Sodium (Porcine) (Heparin 5000 units/ml) 5,000 units EVERY 12 HOURS SUBQ 01/02/18 21:00 01/31/18 20:59 Insulin Aspart (NovoLOG) EVERY 6 HOURS SUBQ 01/02/18 12:00 01/31/18 11:29 Lorazepam (Ativan 2mg/ml 1ml) 2 mg Q2H PRN IV For Anxiety 01/02/18 12:00 01/08/18 11:59 Midodrine (Pro-Amatine) 10 mg THREE TIMES A DAY GT 01/02/18 13:00 02/01/18 12:59 01/02/18 13:29 Ondansetron HCl (Zofran) 4 mg Q6H PRN IVP Nausea & Vomiting 01/02/18 12:00 01/31/18 11:59 Polyethylene Glycol (Miralax) 17 gm DAILYPRN PRN ORAL Constipation 01/03/18 09:30 01/31/18 09:29 Potassium Chloride 100 ml @ 100 mls/hr Q1H IVPB 01/02/18 12:00 01/02/18 14:59 01/02/18 12:45 Sodium Chloride 1,000 ml @ 75 mls/hr [id number] IVLG 01/02/18 12:30 01/31/18 12:29 Vancomycin HCl (Vanco rx to dose) 1 ea DAILY PRN MISC PER RX PROTOCOL 01/03/18 09:00 01/31/18 10:14 Vancomycin/Sodium Chloride 250 ml @ 166.667 mls/hr Q12HR@0000,1200 IVPB 01/02/18 12:00 01/07/18 00:00 01/02/18 13:30 Halie El M.D. Jan 02, 2018 13:49
--- NOTE | 2018-01-02 14:45 | Cardiology Report ---
APPROVED REPORT EKG Measurement Heart [id number] Sinus tachycardia Possible Left atrial enlargement Right superior axis deviation Cannot rule out Anterior infarct, age undetermined Abnormal ECG
--- NOTE | 2018-01-02 19:27 | Internal Med Progress Note ---
Subjective Date of Service: Jan 02, 2018 Physician Name Miguel Rcoa Attending Physician Paulo Paredes MD Current Medications Medications (Trade) Dose Ordered Sig/Anthony Route PRN Reason Start Time Stop Time Status Last Admin Dose Admin Acetaminophen (Tylenol) 650 mg Q4H PRN ORAL fever (temp>100.5F) 01/02/18 12:00 01/31/18 11:59 Albuterol/ Ipratropium (Albuterol/ Ipratropium) 3 ml Q4H PRN HHN Shortness of Breath 01/02/18 12:00 01/06/18 11:59 Cefepime HCl 2 gm/ Dextrose 55 ml @ 110 mls/hr EVERY 12 HOURS IVPB 01/02/18 21:00 01/08/18 22:14 Dextrose (Dextrose 50%) 25 ml Q30M PRN IV Hypoglycemia 01/02/18 12:15 01/31/18 10:04 Dextrose (Dextrose 50%) 50 ml Q30M PRN IV hypoglycemia 01/02/18 12:15 01/31/18 10:14 Famotidine (Pepcid I.v.) 20 mg Q12HR IVP 01/02/18 21:00 02/01/18 20:59 Heparin Sodium (Porcine) (Heparin 5000 units/ml) 5,000 units EVERY 12 HOURS SUBQ 01/02/18 21:00 01/31/18 20:59 Insulin Aspart (NovoLOG) EVERY 6 HOURS SUBQ 01/02/18 12:00 01/31/18 11:29 Lorazepam (Ativan 2mg/ml 1ml) 2 mg Q2H PRN IV For Anxiety 01/02/18 12:00 01/08/18 11:59 Midodrine (Pro-Amatine) 10 mg THREE TIMES A DAY GT 01/02/18 13:00 02/01/18 12:59 01/02/18 17:08 Ondansetron HCl (Zofran) 4 mg Q6H PRN IVP Nausea & Vomiting 01/02/18 12:00 01/31/18 11:59 Polyethylene Glycol (Miralax) 17 gm DAILYPRN PRN ORAL Constipation 01/03/18 09:30 01/31/18 09:29 Sodium Chloride 1,000 ml @ 75 mls/hr [id number] IVLG 01/02/18 12:30 01/31/18 12:29 01/02/18 13:58 Vancomycin HCl (Vanco rx to dose) 1 ea DAILY PRN MISC PER RX PROTOCOL 01/03/18 09:00 01/31/18 10:14 Vancomycin/Sodium Chloride 250 ml @ 166.667 mls/hr Q12HR@0000,1200 IVPB 01/02/18 12:00 01/07/18 00:00 01/02/18 13:30 Allergies: Coded Allergies: No Known Allergies (Unverified , 01/01/18) ROS Limited/Unobtainable: Yes Subjective 62 YO F admitted with hypoxia, now pneumonia. Cover for Int Med-Dr Paredes. [facility] Objective Last Vital Signs Date Time Temp Pulse Resp B/P (MAP) Pulse Ox O2 Delivery O2 Flow Rate FiO2 01/02/18 16:42 92 16 40 01/02/18 16:00 Mechanical Ventilator 01/02/18 16:00 97.7 113/82 (92) 100 97.7 01/01/18 16:00 50.0 General Appearance: WD/WN, lethargic EENT: PERRL/EOMI, normal ENT inspection Neck: non-tender, normal alignment, supple Cardiovascular: normal peripheral pulses, normal rate, regular rhythm, no gallop/murmur, no JVD Respiratory/Chest: respiratory distress, crackles/rales, rhonchi - bilaterally , expiratory wheezing Abdomen: normal bowel sounds, non tender, soft, no organomegaly, no mass Extremities: normal range of motion Skin: normal pigmentation, warm/dry Laboratory Tests Test 01/02/18 04:00 01/02/18 08:24 White Blood Count 9.7 K/UL (4.8-10.8) Red Blood Count 4.70 M/UL (4.20-5.40) Hemoglobin 12.9 G/DL (12.0-16.0) Hematocrit 39.4 % (37.0-47.0) Mean Corpuscular Volume 84 FL (80-99) Mean Corpuscular Hemoglobin 27.4 PG (27.0-31.0) Mean Corpuscular Hemoglobin Concent 32.7 G/DL (32.0-36.0) Red Cell Distribution Width 17.0 % (11.6-14.8) H Platelet Count 270 K/UL (150-450) Mean Platelet Volume 7.7 FL (6.5-10.1) Neutrophils (%) (Auto) 77.2 % (45.0-75.0) H Lymphocytes (%) (Auto) 14.2 % (20.0-45.0) L Monocytes (%) (Auto) 8.2 % (1.0-10.0) Eosinophils (%) (Auto) 0.1 % (0.0-3.0) Basophils (%) (Auto) 0.4 % (0.0-2.0) Sodium Level 138 MMOL/L (136-145) Potassium Level 3.3 MMOL/L (3.5-5.1) L Chloride Level 103 MMOL/L (98-107) Carbon Dioxide Level 23 MMOL/L (21-32) Anion Gap 12 mmol/L (5-15) Blood Urea Nitrogen 32 mg/dL (7-18) H Creatinine 0.8 MG/DL (0.55-1.30) Estimat Glomerular Filtration Rate > 60 mL/min (>60) Glucose Level 119 MG/DL (74-106) H Hemoglobin A1c 6.0 % (4.3-6.0) Lactic Acid Level 2.00 mmol/L (0.4-2.0) Uric Acid 7.1 MG/DL (2.6-7.2) Calcium Level 7.8 MG/DL (8.5-10.1) L Phosphorus Level 2.6 MG/DL (2.5-4.9) Magnesium Level 1.8 MG/DL (1.8-2.4) Iron Level 33 ug/dL (50-175) L Total Iron Binding Capacity 348 ug/dL (250-450) Percent Iron Saturation 9 % (15-50) L Unsaturated Iron Binding 315 ug/dL (112-346) Ferritin 71 NG/ML (8-388) Total Bilirubin 0.5 MG/DL (0.2-1.0) Gamma Glutamyl Transpeptidase 403 U/L (5-85) H Aspartate Amino Transf (AST/SGOT) 45 U/L (15-37) H Alanine Aminotransferase (ALT/SGPT) 41 U/L (12-78) Alkaline Phosphatase 199 U/L (46-116) H Troponin I 0.366 ng/mL (0.000-0.056) C-Reactive Protein, Quantitative 11.5 mg/dL (0.00-0.90) H Pro-B-Type Natriuretic Peptide 5851 pg/mL (0-125) H Total Protein 6.7 G/DL (6.4-8.2) Albumin 2.1 G/DL (3.4-5.0) L Globulin 4.6 g/dL Albumin/Globulin Ratio 0.5 (1.0-2.7) L Triglycerides Level 90 MG/DL (30-150) Cholesterol Level 138 MG/DL (< 200) LDL Cholesterol 95 mg/dL (<100) HDL Cholesterol 27 MG/DL (40-60) L Cholesterol/HDL Ratio 5.1 (3.3-4.4) H Vitamin B12 Level 1068 PG/ML (193-986) H Folate 45.6 NG/ML (8.6-58.9) Thyroid Stimulating Hormone (TSH) 4.743 uiU/mL (0.358-3.740) Cortisol AM Sample 21.4 UG/DL Random Amikacin Level < 2.6 ug/mL Vancomycin Level Trough 19.2 ug/mL (5.0-12.0) H Arterial Blood pH 7.548 (7.350-7.450) Arterial Blood Partial Pressure CO2 26.9 mmHg (35.0-45.0) L Arterial Blood Partial Pressure O2 93.1 mmHg (75.0-100.0) Arterial Blood HCO3 22.9 mmol/L (22.0-26.0) Arterial Blood Oxygen Saturation 97.2 % (95-100) Arterial Blood Base Excess 1.6 (-2-2) [place] Test Positive Microbiology Date/Time Source Procedure Growth Status 01/01/18 03:30 Blood Blood Culture - Preliminary NO GROWTH AFTER 24 HOURS Resulted 01/01/18 03:15 Blood Blood Culture - Preliminary NO GROWTH AFTER 24 HOURS Resulted Intake and Output 01/01/18 01/02/18 19:00 07:00 Intake Total 1025 ml 2003.4 ml Output Total 740 ml 710 ml Balance 285 ml 1293.4 ml IV Total 1025 ml 1983.4 ml Tube Feeding 20 ml Output Urine Total 740 ml 710 ml # Bowel Movements 2 2 Assessment/Plan Problem List: (1) Elevated troponin Assessment & Plan: See cardiology note. (2) Pneumonia Assessment & Plan: Continue vanco and cefepime per ID (3) Acute on chronic respiratory failure (4) Tracheostomy complication (5) Respiratory distress Assessment & Plan: Chronic vent dep (6) Diabetes mellitus (7) Anoxic brain damage (8) Feeding by G-tube (9) Seizure disorder Status: not improved Miguel Roca MD Jan 02, 2018 19:27
--- NOTE | 2018-01-02 22:03 | Cardiology Progress Note ---
Assessment/Plan Status: stable Assessment/Plan Assessment: anoxic brain damage trach/G-tube contractures diabetes GERD hypotension seizure septic shock PNA electrolyte abnormalities Hypoalbuminemia , Proteinuria Plan: Echocardiogram reviewed, no indication for pericardiocentesis IV fluids to increase intracardiac pressures Monitor hemodynamics. Serial EKG/Troponin - may need heparin if troponin continues to rise No indication for cath Follow cultures IV Abx Pressors prn Monitor urine output Supportive care Subjective Cardiovascular: Reports: no symptoms Respiratory: Reports: no symptoms Gastrointestinal/Abdominal: Reports: no symptoms Genitourinary: Reports: no symptoms Subjective Transferred to [facility], copious secretions, no acute events. Non verbal, G tube in place, vitals stable. Objective Last 24 Hour Vital Signs Date Time Temp Pulse Resp B/P (MAP) Pulse Ox O2 Delivery O2 Flow Rate FiO2 01/02/18 21:23 90 18 40 01/02/18 20:00 Mechanical Ventilator 01/02/18 20:00 98.8 87 16 113/77 (89) 100 98.8 01/02/18 20:00 40 01/02/18 19:48 80 16 Mechanical Ventilator 40 01/02/18 19:48 80 16 40 01/02/18 19:31 83 01/02/18 16:42 92 16 40 01/02/18 16:41 92 01/02/18 16:00 Mechanical Ventilator 01/02/18 16:00 97.7 81 16 113/82 (92) 100 97.7 01/02/18 16:00 40 01/02/18 15:11 89 17 40 01/02/18 12:37 84 16 40 01/02/18 12:00 Mechanical Ventilator 01/02/18 12:00 97.7 83 16 105/66 (79) 96 97.7 01/02/18 12:00 40 01/02/18 11:00 78 18 104/64 (77) 100 01/02/18 10:42 74 16 40 01/02/18 10:00 75 17 98/60 (73) 100 01/02/18 10:00 98/60 01/02/18 09:00 81 16 93/59 (70) 100 01/02/18 08:57 94 18 40 01/02/18 08:00 98.9 77 16 98/50 (66) 100 98.9 01/02/18 08:00 85 01/02/18 08:00 Mechanical Ventilator 10/8/18 08:00 40 01/02/18 07:05 91 16 40 01/02/18 07:03 89 16 Mechanical Ventilator 40 01/02/18 07:00 80 16 99/48 (65) 100 01/02/18 06:00 91 16 114/68 (83) 100 01/02/18 05:10 94 18 40 01/02/18 05:00 92 16 100/57 (71) 100 01/02/18 04:00 40 01/02/18 04:00 91 01/02/18 04:00 Mechanical Ventilator 01/02/18 04:00 97.6 87 16 101/63 (76) 100 97.6 01/02/18 03:02 92 16 40 01/02/18 03:00 90 16 122/68 (86) 100 01/02/18 02:00 85 16 93/49 (64) 100 01/02/18 01:00 88 16 98/68 (78) 100 01/02/18 00:56 87 16 40 01/02/18 00:00 Mechanical Ventilator 01/02/18 00:00 97.2 85 16 98/64 (75) 100 97.2 01/01/18 23:00 89 16 104/75 (85) 100 01/01/18 22:36 90 16 40 General Appearance: no apparent distress, on vent EENT: PERRL/EOMI, normal ENT inspection, TMs normal, pharynx normal Neck: non-tender, normal alignment, supple, normal inspection, no JVD Rhythm: NSR Cardiovascular: normal peripheral pulses, normal rate Respiratory/Chest: chest wall non-tender, decreased breath sounds, accessory muscle use, crackles/rales Abdomen: normal bowel sounds, non tender, soft, no organomegaly, no mass Extremities: normal range of motion, non-tender, normal inspection, no calf tenderness Neurologic: wire insulator II-XII grossly normal, abnormal CN, motor weakness, sensory deficit, disoriented Intake and Output 01/01/18 01/02/18 19:00 07:00 Intake Total 1025 ml 2003.4 ml Output Total 740 ml 710 ml Balance 285 ml 1293.4 ml IV Total 1025 ml 1983.4 ml Tube Feeding 20 ml Output Urine Total 740 ml 710 ml # Bowel Movements 2 2 Laboratory Tests Test 01/02/18 04:00 01/02/18 08:24 White Blood Count 9.7 K/UL (4.8-10.8) Red Blood Count 4.70 M/UL (4.20-5.40) Hemoglobin 12.9 G/DL (12.0-16.0) Hematocrit 39.4 % (37.0-47.0) Mean Corpuscular Volume 84 FL (80-99) Mean Corpuscular Hemoglobin 27.4 PG (27.0-31.0) Mean Corpuscular Hemoglobin Concent 32.7 G/DL (32.0-36.0) Red Cell Distribution Width 17.0 % (11.6-14.8) H Platelet Count 270 K/UL (150-450) Mean Platelet Volume 7.7 FL (6.5-10.1) Neutrophils (%) (Auto) 77.2 % (45.0-75.0) H Lymphocytes (%) (Auto) 14.2 % (20.0-45.0) L Monocytes (%) (Auto) 8.2 % (1.0-10.0) Eosinophils (%) (Auto) 0.1 % (0.0-3.0) Basophils (%) (Auto) 0.4 % (0.0-2.0) Sodium Level 138 MMOL/L (136-145) Potassium Level 3.3 MMOL/L (3.5-5.1) L Chloride Level 103 MMOL/L (98-107) Carbon Dioxide Level 23 MMOL/L (21-32) Anion Gap 12 mmol/L (5-15) Blood Urea Nitrogen 32 mg/dL (7-18) H Creatinine 0.8 MG/DL (0.55-1.30) Estimat Glomerular Filtration Rate > 60 mL/min (>60) Glucose Level 119 MG/DL (74-106) H Hemoglobin A1c 6.0 % (4.3-6.0) Lactic Acid Level 2.00 mmol/L (0.4-2.0) Uric Acid 7.1 MG/DL (2.6-7.2) Calcium Level 7.8 MG/DL (8.5-10.1) L Phosphorus Level 2.6 MG/DL (2.5-4.9) Magnesium Level 1.8 MG/DL (1.8-2.4) Iron Level 33 ug/dL (50-175) L Total Iron Binding Capacity 348 ug/dL (250-450) Percent Iron Saturation 9 % (15-50) L Unsaturated Iron Binding 315 ug/dL (112-346) Ferritin 71 NG/ML (8-388) Total Bilirubin 0.5 MG/DL (0.2-1.0) Gamma Glutamyl Transpeptidase 403 U/L (5-85) H Aspartate Amino Transf (AST/SGOT) 45 U/L (15-37) H Alanine Aminotransferase (ALT/SGPT) 41 U/L (12-78) Alkaline Phosphatase 199 U/L (46-116) H Troponin I 0.366 ng/mL (0.000-0.056) C-Reactive Protein, Quantitative 11.5 mg/dL (0.00-0.90) H Pro-B-Type Natriuretic Peptide 5851 pg/mL (0-125) H Total Protein 6.7 G/DL (6.4-8.2) Albumin 2.1 G/DL (3.4-5.0) L Globulin 4.6 g/dL Albumin/Globulin Ratio 0.5 (1.0-2.7) L Triglycerides Level 90 MG/DL (30-150) Cholesterol Level 138 MG/DL (< 200) LDL Cholesterol 95 mg/dL (<100) HDL Cholesterol 27 MG/DL (40-60) L Cholesterol/HDL Ratio 5.1 (3.3-4.4) H Vitamin B12 Level 1068 PG/ML (193-986) H Folate 45.6 NG/ML (8.6-58.9) Thyroid Stimulating Hormone (TSH) 4.743 uiU/mL (0.358-3.740) Cortisol AM Sample 21.4 UG/DL Random Amikacin Level < 2.6 ug/mL Vancomycin Level Trough 19.2 ug/mL (5.0-12.0) H Arterial Blood pH 7.548 (7.350-7.450) Arterial Blood Partial Pressure CO2 26.9 mmHg (35.0-45.0) L Arterial Blood Partial Pressure O2 93.1 mmHg (75.0-100.0) Arterial Blood HCO3 22.9 mmol/L (22.0-26.0) Arterial Blood Oxygen Saturation 97.2 % (95-100) Arterial Blood Base Excess 1.6 (-2-2) [place] Test Positive Microbiology Date/Time Source Procedure Growth Status 01/01/18 03:30 Blood Blood Culture - Preliminary NO GROWTH AFTER 24 HOURS Resulted 01/01/18 03:15 Blood Blood Culture - Preliminary NO GROWTH AFTER 24 HOURS Resulted Kit Campuzano MD Jan 02, 2018 22:03
[2018-01-03] VITALS: BP 100/60
[2018-01-03 04:00] VITALS: BP 120/77
[2018-01-03 04:31] LABS: BASOPHILS % (AUTO) 0.4 % (0.0-2.0); EOSINOPHILS % (AUTO) 0.2 % (0.0-3.0); HEMATOCRIT 38.7 % (37.0-47.0); HEMOGLOBIN 12.6 G/DL (12.0-16.0); LYMPHOCYTES % (AUTO) 15.2 % (20.0-45.0); MEAN CORPUSCULAR VOLUME 84 FL (80-99); MONOCYTES % (AUTO) 8.1 % (1.0-10.0); NEUTROPHILS % (AUTO) 76.1 % (45.0-75.0); PLATELET COUNT 246 K/UL (150-450); RED BLOOD COUNT 4.61 M/UL (4.20-5.40); RED CELL DISTRIBUTION WIDTH 16.8 % (11.6-14.8); WHITE BLOOD COUNT 8.4 K/UL (4.8-10.8)
[2018-01-03 04:52] LABS: ALANINE AMINOTRANSFERASE 42 U/L (12-78); ALBUMIN 2.2 G/DL (3.4-5.0); ALBUMIN/GLOBULIN RATIO 0.5 (1.0-2.7); ALKALINE PHOSPHATASE 184 U/L (46-116); ANION GAP 10 mmol/L (5-15); ASPARTATE AMINO TRANSFERASE 47 U/L (15-37); BILIRUBIN,TOTAL 0.5 MG/DL (0.2-1.0); BLOOD UREA NITROGEN 31 mg/dL (7-18); CALCIUM 8.3 MG/DL (8.5-10.1); CARBON DIOXIDE 24 MMOL/L (21-32); CHLORIDE 104 MMOL/L (98-107); CREATININE 0.7 MG/DL (0.55-1.30); POTASSIUM 3.5 MMOL/L (3.5-5.1); SODIUM 137 MMOL/L (136-145)
[2018-01-03 05:12] LABS: PHOSPHORUS 2.5 MG/DL (2.5-4.9)
[2018-01-03] MEDS: NovoLOG Insulin Flexpen SUBQ SCH ×4 (05:18→17:54)
[2018-01-03 08:00] VITALS: BP 119/62
[2018-01-03] MEDS: Cefepime HCl 2 GM in D5W 55 ML IVPB SCH ×2 (08:44→19:48)
[2018-01-03] MEDS: Midodrine 10mg tab GT SCH ×3 (08:44→17:54)
[2018-01-03] MEDS ORDERED: Acetaminophen 650mg/20.3ml GT PRN (08:45)
[2018-01-03] MEDS: Heparin 5000 units/ml inj SUBQ SCH ×2 (08:46→19:51)
[2018-01-03] MEDS ORDERED: Pantoprazole Inj IVP SCH (09:00)
[2018-01-03] MEDS ORDERED: Miralax 17gm pkt GT PRN (09:30)
--- NOTE | 2018-01-03 10:07 | Pulmonolgy Critical Care Note ---
Critical Care - Asmt/Plan Problems: (1) Acute on chronic respiratory failure (2) Pneumonia (3) Vegetative state (4) Anoxic brain damage (5) Feeding by G-tube (6) Diabetes mellitus Respiratory: monitor respiratory rate, adjust FIO2, CXR Cardiac: continue to monitor HR/BP Renal: F/U I&O, keep IV fluid Infectious Disease: check cultures, continue antibiotics Gastrointestinal: continue feedings/current rate, hold feedings Endocrine: check TSH, check HgA1C Hematologic: transfuse if hgb<8.5 Neurologic: PRN Ativan, keep patient comfortable Affect: PRN ativan Prophylaxis: Heparin Notes Reviewed: frequency checker, cardio Discussed with: nurses, consultants, complex case managermaterials management manager - Objective Last 24 Hour Vital Signs Date Time Temp Pulse Resp B/P (MAP) Pulse Ox O2 Delivery O2 Flow Rate FiO2 01/03/18 09:11 87 16 40 01/03/18 08:00 98.6 85 16 119/62 (81) 100 98.6 01/03/18 08:00 85 01/03/18 08:00 Mechanical Ventilator 01/03/18 08:00 40 01/03/18 06:44 78 16 40 01/03/18 06:40 85 16 Mechanical Ventilator 40 01/03/18 04:52 92 16 40 01/03/18 04:00 98.2 88 16 120/77 (91) 100 98.2 01/03/18 04:00 87 01/03/18 04:00 40 01/03/18 04:00 Mechanical Ventilator 01/03/18 03:20 92 16 40 01/03/18 01:18 100 17 40 01/03/18 00:00 Mechanical Ventilator 01/03/18 00:00 40 01/03/18 00:00 98.5 86 16 100/60 (73) 100 98.5 01/02/18 23:52 83 01/02/18 23:02 89 16 40 01/02/18 21:23 90 18 40 01/02/18 20:00 Mechanical Ventilator 01/02/18 20:00 98.8 87 16 113/77 (89) 100 98.8 01/02/18 20:00 40 01/02/18 19:48 80 16 Mechanical Ventilator 40 01/02/18 19:48 80 16 40 01/02/18 19:31 83 01/02/18 16:42 92 16 40 10/8/18 16:41 92 01/02/18 16:00 Mechanical Ventilator 01/02/18 16:00 97.7 81 16 113/82 (92) 100 97.7 01/02/18 16:00 40 01/02/18 15:11 89 17 40 01/02/18 12:37 84 16 40 01/02/18 12:00 Mechanical Ventilator 01/02/18 12:00 97.7 83 16 105/66 (79) 96 97.7 01/02/18 12:00 40 01/02/18 11:00 78 18 104/64 (77) 100 01/02/18 10:42 74 16 40 Status: obtunded Condition: critical HEENT: atraumatic Heart: HR/BP stable, regular Abdomen: non-tender, feeding tube Extremities: edema Decubiti: stage Micro: Microbiology Date/Time Source Procedure Growth Status 01/01/18 10:30 Blood Blood Culture - Preliminary NO GROWTH AFTER 24 HOURS Resulted 01/01/18 10:00 Blood Blood Culture - Preliminary NO GROWTH AFTER 24 HOURS Resulted 01/01/18 03:30 Blood Blood Culture - Preliminary NO GROWTH AFTER 48 HOURS Resulted 01/01/18 03:15 Blood Blood Culture - Preliminary NO GROWTH AFTER 48 HOURS Resulted 01/01/18 05:00 Nasal Nares MRSA Culture - Final NO METHICILLIN RESISTANT STAPH AUREUS... Complete 01/02/18 17:00 Urine,Clean Catch Urine Culture - Preliminary NO GROWTH Resulted 01/01/18 05:00 Rectum VRE Culture - Final Enterococcus Faecalis - Vre Complete 01/01/18 05:00 Rectum - Final NO CARBAPENEM-RESISTANT ENTEROBACTERI... Complete Accucheck: 109 Critical Care - Subjective ROS Limited/Unobtainable: Yes Condition: critical FI02: 40 Vent Support Breath Rate: 16 Vent Support Mode: AC Vent Tidal Volume: 600 Sputum Amount: Moderate PEEP: 5.0 PIP: 37 Tube Feeding Amount: 10 I&O: Intake and Output 01/02/18 01/03/18 19:00 07:00 Intake Total 865.000 ml 1415 ml Output Total 620 ml 500 ml Balance 245.000 ml 915 ml IV Total 825.000 ml 1305 ml Tube Feeding 40 ml 110 ml Output Urine Total 620 ml 500 ml # Bowel Movements 2 4 CXR: trach intact, no changes Labs: Laboratory Tests Test 01/02/18 23:56 01/03/18 04:00 Vancomycin Level Trough 15.8 ug/mL (5.0-12.0) H White Blood Count 8.4 K/UL (4.8-10.8) Red Blood Count 4.61 M/UL (4.20-5.40) Hemoglobin 12.6 G/DL (12.0-16.0) Hematocrit 38.7 % (37.0-47.0) Mean Corpuscular Volume 84 FL (80-99) Mean Corpuscular Hemoglobin 27.3 PG (27.0-31.0) Mean Corpuscular Hemoglobin Concent 32.5 G/DL (32.0-36.0) Red Cell Distribution Width 16.8 % (11.6-14.8) H Platelet Count 246 K/UL (150-450) Mean Platelet Volume 6.9 FL (6.5-10.1) Neutrophils (%) (Auto) 76.1 % (45.0-75.0) H Lymphocytes (%) (Auto) 15.2 % (20.0-45.0) L Monocytes (%) (Auto) 8.1 % (1.0-10.0) Eosinophils (%) (Auto) 0.2 % (0.0-3.0) Basophils (%) (Auto) 0.4 % (0.0-2.0) Sodium Level 137 MMOL/L (136-145) Potassium Level 3.5 MMOL/L (3.5-5.1) Chloride Level 104 MMOL/L (98-107) Carbon Dioxide Level 24 MMOL/L (21-32) Anion Gap 10 mmol/L (5-15) Blood Urea Nitrogen 31 mg/dL (7-18) H Creatinine 0.7 MG/DL (0.55-1.30) Estimat Glomerular Filtration Rate > 60 mL/min (>60) Glucose Level 115 MG/DL (74-106) H Uric Acid 7.1 MG/DL (2.6-7.2) Calcium Level 8.3 MG/DL (8.5-10.1) L Phosphorus Level 2.5 MG/DL (2.5-4.9) Magnesium Level 1.8 MG/DL (1.8-2.4) Total Bilirubin 0.5 MG/DL (0.2-1.0) Aspartate Amino Transf (AST/SGOT) 47 U/L (15-37) H Alanine Aminotransferase (ALT/SGPT) 42 U/L (12-78) Alkaline Phosphatase 184 U/L (46-116) H Troponin I 0.242 ng/mL (0.000-0.056) Pro-B-Type Natriuretic Peptide 5305 pg/mL (0-125) H Total Protein 6.6 G/DL (6.4-8.2) Albumin 2.2 G/DL (3.4-5.0) L Globulin 4.4 g/dL Albumin/Globulin Ratio 0.5 (1.0-2.7) L James Walter MD Jan 03, 2018 10:07
[2018-01-03 12:00] VITALS: BP 112/65
[2018-01-03] MEDS: Vancomycin 750mg/NS 250ml 250 ML IVPB SCH ×2 (12:00)
--- NOTE | 2018-01-03 12:44 | Diagnostic Imaging Report ---
Indication: Dyspnea Comparison: 01/02/2018 A single view chest radiograph was obtained. Findings: Cardiomegaly is stable. Nonspecific Interstitial prominence noted without significant change. There is silhouetting of the left hemidiaphragm again noted. IMPRESSION: No change from the prior day
--- NOTE | 2018-01-03 13:13 | Infectious Diseases Prog Note ---
Assessment/Plan Assessment/Plan Assessment: Sepsis 2ry to PNA/HAP; improving -01/02 CXR: Suspected left basilar pneumonia versus atelectasis. Correlate clinically. -sp cx p -u/a neg, ucx NTD -Bcx NTD Fever, improving Leukocytosis, SP Elevated tropoonin Acute on chronic resp failure/ trach dependant DM2 Dysphagia s/p GT Seizure disorder Chronic encephalopathy 2ry to anoxic brain damage contractures GERD Plan: -Continue IV Vanco and Cefepime #3 pending cultures -f/u cx -Montior CBC/CMP, temperatures -aspiration precautions -legionella ag urine Discussed with RN. Subjective Allergies: Coded Allergies: No Known Allergies (Unverified , 01/01/18) Subjective afebrile >48 hrs no leukocytosis Bcx NTD Transferred from ICU to [facility] yesterday Objective Vital Signs Last 24 Hour Vital Signs Date Time Temp Pulse Resp B/P (MAP) Pulse Ox O2 Delivery O2 Flow Rate FiO2 01/03/18 12:00 98.7 89 16 112/65 (81) 100 98.7 01/03/18 12:00 Mechanical Ventilator 01/03/18 12:00 40 01/03/18 12:00 82 01/03/18 10:41 90 18 40 01/03/18 09:11 87 16 40 01/03/18 08:00 98.6 85 16 119/62 (81) 100 98.6 01/03/18 08:00 85 01/03/18 08:00 Mechanical Ventilator 01/03/18 08:00 40 01/03/18 06:44 78 16 40 01/03/18 06:40 85 16 Mechanical Ventilator 40 01/03/18 04:52 92 16 40 01/03/18 04:00 98.2 88 16 120/77 (91) 100 98.2 01/03/18 04:00 87 01/03/18 04:00 40 01/03/18 04:00 Mechanical Ventilator 01/03/18 03:20 92 16 40 01/03/18 01:18 100 17 40 01/03/18 00:00 Mechanical Ventilator 01/03/18 00:00 40 01/03/18 00:00 98.5 86 16 100/60 (73) 100 98.5 01/02/18 23:52 83 01/02/18 23:02 89 16 40 01/02/18 21:23 90 18 40 01/02/18 20:00 Mechanical Ventilator 01/02/18 20:00 98.8 87 16 113/77 (89) 100 98.8 01/02/18 20:00 40 01/02/18 19:48 80 16 Mechanical Ventilator 40 01/02/18 19:48 80 16 40 01/02/18 19:31 83 01/02/18 16:42 92 16 40 01/02/18 16:41 92 01/02/18 16:00 Mechanical Ventilator 01/02/18 16:00 97.7 81 16 113/82 (92) 100 97.7 01/02/18 16:00 40 01/02/18 15:11 89 17 40 Height (Feet): 5 Height (Inches): 4.00 Weight (Pounds): 152 Objective Status: awake Condition: critical HEENT: atraumatic Lungs: clear Heart: HR/BP stable Abdomen: soft, active bowel sounds Extremities: no C/C/E Decubiti: location Microbiology Date/Time Source Procedure Growth Status 01/01/18 10:30 Blood Blood Culture - Preliminary NO GROWTH AFTER 24 HOURS Resulted 01/01/18 10:00 Blood Blood Culture - Preliminary NO GROWTH AFTER 24 HOURS Resulted 01/01/18 03:30 Blood Blood Culture - Preliminary NO GROWTH AFTER 48 HOURS Resulted 01/01/18 03:15 Blood Blood Culture - Preliminary NO GROWTH AFTER 48 HOURS Resulted 01/02/18 18:55 Sputum Gram Stain - Final Resulted 01/02/18 18:55 Sputum Sputum Culture Pending Resulted 01/01/18 05:00 Nasal Nares MRSA Culture - Final NO METHICILLIN RESISTANT STAPH AUREUS... Complete 01/02/18 17:00 Urine,Clean Catch Urine Culture - Preliminary NO GROWTH Resulted 01/01/18 05:00 Rectum VRE Culture - Final Enterococcus Faecalis - Vre Complete 01/01/18 05:00 Rectum - Final NO CARBAPENEM-RESISTANT ENTEROBACTERI... Complete Laboratory Tests Test 01/02/18 23:56 01/03/18 04:00 Vancomycin Level Trough 15.8 ug/mL (5.0-12.0) H White Blood Count 8.4 K/UL (4.8-10.8) Red Blood Count 4.61 M/UL (4.20-5.40) Hemoglobin 12.6 G/DL (12.0-16.0) Hematocrit 38.7 % (37.0-47.0) Mean Corpuscular Volume 84 FL (80-99) Mean Corpuscular Hemoglobin 27.3 PG (27.0-31.0) Mean Corpuscular Hemoglobin Concent 32.5 G/DL (32.0-36.0) Red Cell Distribution Width 16.8 % (11.6-14.8) H Platelet Count 246 K/UL (150-450) Mean Platelet Volume 6.9 FL (6.5-10.1) Neutrophils (%) (Auto) 76.1 % (45.0-75.0) H Lymphocytes (%) (Auto) 15.2 % (20.0-45.0) L Monocytes (%) (Auto) 8.1 % (1.0-10.0) Eosinophils (%) (Auto) 0.2 % (0.0-3.0) Basophils (%) (Auto) 0.4 % (0.0-2.0) Sodium Level 137 MMOL/L (136-145) Potassium Level 3.5 MMOL/L (3.5-5.1) Chloride Level 104 MMOL/L (98-107) Carbon Dioxide Level 24 MMOL/L (21-32) Anion Gap 10 mmol/L (5-15) Blood Urea Nitrogen 31 mg/dL (7-18) H Creatinine 0.7 MG/DL (0.55-1.30) Estimat Glomerular Filtration Rate > 60 mL/min (>60) Glucose Level 115 MG/DL (74-106) H Uric Acid 7.1 MG/DL (2.6-7.2) Calcium Level 8.3 MG/DL (8.5-10.1) L Phosphorus Level 2.5 MG/DL (2.5-4.9) Magnesium Level 1.8 MG/DL (1.8-2.4) Total Bilirubin 0.5 MG/DL (0.2-1.0) Aspartate Amino Transf (AST/SGOT) 47 U/L (15-37) H Alanine Aminotransferase (ALT/SGPT) 42 U/L (12-78) Alkaline Phosphatase 184 U/L (46-116) H Troponin I 0.242 ng/mL (0.000-0.056) Pro-B-Type Natriuretic Peptide 5305 pg/mL (0-125) H Total Protein 6.6 G/DL (6.4-8.2) Albumin 2.2 G/DL (3.4-5.0) L Globulin 4.4 g/dL Albumin/Globulin Ratio 0.5 (1.0-2.7) L Current Medications Medications (Trade) Dose Ordered Sig/Anthony Route PRN Reason Start Time Stop Time Status Last Admin Dose Admin Acetaminophen (Tylenol) 650 mg Q4H PRN GT FEVER>100.5 01/03/18 08:45 02/02/18 08:44 Albuterol/ Ipratropium (Albuterol/ Ipratropium) 3 ml Q4H PRN HHN Shortness of Breath 01/02/18 12:00 01/06/18 11:59 Cefepime HCl 2 gm/ Dextrose 55 ml @ 110 mls/hr EVERY 12 HOURS IVPB 01/02/18 21:00 01/08/18 22:14 01/03/18 08:44 Dextrose (Dextrose 50%) 25 ml Q30M PRN IV Hypoglycemia 01/02/18 12:15 01/31/18 10:04 Dextrose (Dextrose 50%) 50 ml Q30M PRN IV hypoglycemia 01/02/18 12:15 01/31/18 10:14 Famotidine (Pepcid I.v.) 20 mg Q12HR IVP 01/02/18 21:00 02/01/18 20:59 01/03/18 08:44 Heparin Sodium (Porcine) (Heparin 5000 units/ml) 5,000 units EVERY 12 HOURS SUBQ 01/02/18 21:00 01/31/18 20:59 01/03/18 08:46 Insulin Aspart (NovoLOG) EVERY 6 HOURS SUBQ 01/02/18 12:00 01/31/18 11:29 Lorazepam (Ativan 2mg/ml 1ml) 2 mg Q2H PRN IV For Anxiety 01/02/18 12:00 01/08/18 11:59 Midodrine (Pro-Amatine) 10 mg THREE TIMES A DAY GT 01/02/18 13:00 02/01/18 12:59 01/03/18 12:55 Ondansetron HCl (Zofran) 4 mg Q6H PRN IVP Nausea & Vomiting 01/02/18 12:00 01/31/18 11:59 Polyethylene Glycol (Miralax) 17 gm DAILYPRN PRN GT Constipation 01/03/18 09:30 01/31/18 09:29 Sodium Chloride 1,000 ml @ 50 mls/hr Q20H IVLG 01/03/18 10:30 01/31/18 10:29 01/03/18 10:30 Vancomycin HCl (Vanco rx to dose) 1 ea DAILY PRN MISC PER RX PROTOCOL 01/03/18 09:00 01/31/18 10:14 Vancomycin/Sodium Chloride 250 ml @ 166.667 mls/hr Q12HR@0000,1200 IVPB 01/02/18 12:00 01/07/18 00:00 01/03/18 12:00 Halie El M.D. Jan 03, 2018 13:13
--- NOTE | 2018-01-03 13:37 | Diagnostic Imaging Report ---
Indication:Abdominal pain Technique: Grayscale and duplex Doppler imaging of the abdomen performed. Comparison: None Findings: The liver is echogenic consistent with fatty infiltration and measures 16 cm. CBD is 2.4 mm. The gallbladder shows wall thickening. Sonographic Beasley's is negative per technologist. No definite gallstones are identified. Trace free fluid noted in Morison's pouch.. The demonstrated part of the pancreas, aorta and IVC show no abnormalities. Both kidneys appear unremarkable. The spleen is normal in size. There is no biliary ductal dilatation identified. Doppler evaluation of the main portal vein shows patency. There is no ascites. No hydronephrosis seen but the kidneys are poorly visualized on this examination. Impression: Fatty liver. Thickened gallbladder wall nonspecific in nature. Nontender gallbladder. Correlate clinically. Trace ascites
--- NOTE | 2018-01-03 13:44 | Cardiology Progress Note ---
Assessment/Plan Status: stable Assessment/Plan Assessment: anoxic brain damage trach/G-tube contractures diabetes GERD hypotension seizure septic shock PNA electrolyte abnormalities Hypoalbuminemia , Proteinuria Plan: Echocardiogram reviewed, no indication for pericardiocentesis IV fluids to increase intracardiac pressures Monitor hemodynamics. Serial EKG/Troponin - may need heparin if troponin continues to rise - currently down trending No indication for cath/strses Follow cultures IV Abx Pressors prn Monitor urine output Supportive care Subjective Cardiovascular: Reports: no symptoms Respiratory: Reports: no symptoms Gastrointestinal/Abdominal: Reports: no symptoms Genitourinary: Reports: no symptoms Subjective Transferred to [facility], copious secretions, no acute events. Non verbal, G tube in place, vitals stable, troponin downtrending Objective Last 24 Hour Vital Signs Date Time Temp Pulse Resp B/P (MAP) Pulse Ox O2 Delivery O2 Flow Rate FiO2 01/03/18 12:58 70 16 40 01/03/18 12:00 98.7 89 16 112/65 (81) 100 98.7 01/03/18 12:00 Mechanical Ventilator 01/03/18 12:00 40 01/03/18 12:00 82 01/03/18 10:41 90 18 40 01/03/18 09:11 87 16 40 01/03/18 08:00 98.6 85 16 119/62 (81) 100 98.6 01/03/18 08:00 85 01/03/18 08:00 Mechanical Ventilator 01/03/18 08:00 40 01/03/18 06:44 78 16 40 01/03/18 06:40 85 16 Mechanical Ventilator 40 01/03/18 04:52 92 16 40 01/03/18 04:00 98.2 88 16 120/77 (91) 100 98.2 01/03/18 04:00 87 01/03/18 04:00 40 01/03/18 04:00 Mechanical Ventilator 01/03/18 03:20 92 16 40 01/03/18 01:18 100 17 40 01/03/18 00:00 Mechanical Ventilator 01/03/18 00:00 40 01/03/18 00:00 98.5 86 16 100/60 (73) 100 98.5 01/02/18 23:52 83 01/02/18 23:02 89 16 40 01/02/18 21:23 90 18 40 01/02/18 20:00 Mechanical Ventilator 01/02/18 20:00 98.8 87 16 113/77 (89) 100 98.8 01/02/18 20:00 40 01/02/18 19:48 80 16 Mechanical Ventilator 40 01/02/18 19:48 80 16 40 01/02/18 19:31 83 01/02/18 16:42 92 16 40 01/02/18 16:41 92 01/02/18 16:00 Mechanical Ventilator 01/02/18 16:00 97.7 81 16 113/82 (92) 100 97.7 01/02/18 16:00 40 01/02/18 15:11 89 17 40 General Appearance: no apparent distress, on vent EENT: PERRL/EOMI, normal ENT inspection, TMs normal, pharynx normal Neck: non-tender, normal alignment, supple, normal inspection, no JVD Rhythm: NSR Cardiovascular: normal peripheral pulses, normal rate, regular rhythm Respiratory/Chest: chest wall non-tender, crackles/rales Abdomen: normal bowel sounds, non tender, soft, no organomegaly, no mass Extremities: normal range of motion, non-tender, normal inspection Neurologic: restaurant lead II-XII grossly normal Intake and Output 01/02/18 01/03/18 19:00 07:00 Intake Total 865.000 ml 1415 ml Output Total 620 ml 500 ml Balance 245.000 ml 915 ml IV Total 825.000 ml 1305 ml Tube Feeding 40 ml 110 ml Output Urine Total 620 ml 500 ml # Bowel Movements 2 4 Laboratory Tests Test 01/02/18 23:56 01/03/18 04:00 Vancomycin Level Trough 15.8 ug/mL (5.0-12.0) H White Blood Count 8.4 K/UL (4.8-10.8) Red Blood Count 4.61 M/UL (4.20-5.40) Hemoglobin 12.6 G/DL (12.0-16.0) Hematocrit 38.7 % (37.0-47.0) Mean Corpuscular Volume 84 FL (80-99) Mean Corpuscular Hemoglobin 27.3 PG (27.0-31.0) Mean Corpuscular Hemoglobin Concent 32.5 G/DL (32.0-36.0) Red Cell Distribution Width 16.8 % (11.6-14.8) H Platelet Count 246 K/UL (150-450) Mean Platelet Volume 6.9 FL (6.5-10.1) Neutrophils (%) (Auto) 76.1 % (45.0-75.0) H Lymphocytes (%) (Auto) 15.2 % (20.0-45.0) L Monocytes (%) (Auto) 8.1 % (1.0-10.0) Eosinophils (%) (Auto) 0.2 % (0.0-3.0) Basophils (%) (Auto) 0.4 % (0.0-2.0) Sodium Level 137 MMOL/L (136-145) Potassium Level 3.5 MMOL/L (3.5-5.1) Chloride Level 104 MMOL/L (98-107) Carbon Dioxide Level 24 MMOL/L (21-32) Anion Gap 10 mmol/L (5-15) Blood Urea Nitrogen 31 mg/dL (7-18) H Creatinine 0.7 MG/DL (0.55-1.30) Estimat Glomerular Filtration Rate > 60 mL/min (>60) Glucose Level 115 MG/DL (74-106) H Uric Acid 7.1 MG/DL (2.6-7.2) Calcium Level 8.3 MG/DL (8.5-10.1) L Phosphorus Level 2.5 MG/DL (2.5-4.9) Magnesium Level 1.8 MG/DL (1.8-2.4) Total Bilirubin 0.5 MG/DL (0.2-1.0) Aspartate Amino Transf (AST/SGOT) 47 U/L (15-37) H Alanine Aminotransferase (ALT/SGPT) 42 U/L (12-78) Alkaline Phosphatase 184 U/L (46-116) H Troponin I 0.242 ng/mL (0.000-0.056) Pro-B-Type Natriuretic Peptide 5305 pg/mL (0-125) H Total Protein 6.6 G/DL (6.4-8.2) Albumin 2.2 G/DL (3.4-5.0) L Globulin 4.4 g/dL Albumin/Globulin Ratio 0.5 (1.0-2.7) L Microbiology Date/Time Source Procedure Growth Status 01/01/18 10:30 Blood Blood Culture - Preliminary NO GROWTH AFTER 24 HOURS Resulted 01/01/18 10:00 Blood Blood Culture - Preliminary NO GROWTH AFTER 24 HOURS Resulted 01/01/18 03:30 Blood Blood Culture - Preliminary NO GROWTH AFTER 48 HOURS Resulted 01/01/18 03:15 Blood Blood Culture - Preliminary NO GROWTH AFTER 48 HOURS Resulted 01/02/18 18:55 Sputum Gram Stain - Final Resulted 01/02/18 18:55 Sputum Sputum Culture Pending Resulted 01/01/18 05:00 Nasal Nares MRSA Culture - Final NO METHICILLIN RESISTANT STAPH AUREUS... Complete 01/02/18 17:00 Urine,Clean Catch Urine Culture - Preliminary NO GROWTH Resulted 01/01/18 05:00 Rectum VRE Culture - Final Enterococcus Faecalis - Vre Complete 01/01/18 05:00 Rectum - Final NO CARBAPENEM-RESISTANT ENTEROBACTERI... Complete Kit Campuzano MD Jan 03, 2018 13:44
--- NOTE | 2018-01-03 14:15 | Consultation ---
DATE OF CONSULTATION: 01/02/2018 INFECTIOUS DISEASES CONSULTATION CONSULTING PHYSICIAN: Jh Johns M.D. REFERRING PHYSICIAN: . REASON FOR CONSULTATION: Evaluation of the patient for pneumonia, sepsis, and antibiotic management. HISTORY OF PRESENT ILLNESS: The patient is a 62-year-old female, who [facility] due to hypoxemia, possible pneumonia. The patient was found to be hypotensive, was further admitted to ICU. An Infectious Disease consultation requested for further evaluation of the patient's antibiotic management. The patient is not able to provide much information and much of the information gathered through the chart and speaking to staff. PAST MEDICAL HISTORY: 1. . 2. Contracture. 3. Diabetes. 4. seizure disorder. MEDICATIONS: Vancomycin, amikacin, and . ALLERGIES: No known drug allergies. FAMILY HISTORY: Unavailable. PHYSICAL EXAMINATION: VITAL SIGNS: Temperature 102.7 degrees, pulse 86, respiratory rate 18, and blood pressure 98/59. HEENT: Mild pale conjunctivae. No icterus. LUNGS: Coarse breathing sounds. HEART: S1-S2. ABDOMEN: Soft. EXTREMITIES: No cyanosis at this time. LABORATORY AND DIAGNOSTIC DATA: White blood cells 15.7, bilirubin 300. UA unremarkable. BUN 37, creatinine 0.4. ALT, AST unremarkable. Alkaline phosphatase 251. Chest x-ray atelectasis. ASSESSMENT: The patient is a 62-year-old female with lots of medical problems, who was admitted to this medical center due to hypoxemia and hypertension. 1. Sepsis. 2. Follow pneumonia. 3. Follow . 4. Urinary tract infection, unremarkable UA. 5. Elevated alkaline phosphatase, rule out biliary disease. 6. Urinary tract disease/obstruction. 7. Fever. 8. Leukocytosis. PLAN: We will continue the patient on vancomycin and change amikacin and ertapenem to cefepime. 1. Monitor CBC and BMP. 2. Monitor cultures (blood, urine, and sputum). 3. Monitor chest x-ray. 4. Ultrasound of abdomen and uterus. 5. ICU support. 6. Respiratory support. 7. Based on the patient's clinical course and labs, we will do further recommendation. Thank you for this consultation. I will follow the patient with you during this hospitalization. Jh Johns M.D. DR: EFREN JOB#: [id number] CC:
--- NOTE | 2018-01-03 15:48 | Nephrology Progress Note ---
Assessment/Plan Problem List: (1) Septic shock (2) Acute on chronic respiratory failure (3) Seizure disorder (4) Feeding by G-tube Assessment Septic shock Dyspnea / Pneumonia Respiratory distress Tracheostomy complication electrolyte abnormalities Hypoalbuminemia , Proteinuria Plan Albumin-bolus as needed IV Fluids , K supplement- Antibiotics pressors / Midodrine pulm support per orders Subjective ROS Limited/Unobtainable: Yes Objective Objective Last 24 Hour Vital Signs Date Time Temp Pulse Resp B/P (MAP) Pulse Ox O2 Delivery O2 Flow Rate FiO2 01/03/18 14:52 64 16 40 01/03/18 12:58 70 16 40 01/03/18 12:00 98.7 89 16 112/65 (81) 100 98.7 01/03/18 12:00 Mechanical Ventilator 01/03/18 12:00 40 01/03/18 12:00 82 01/03/18 10:41 90 18 40 01/03/18 09:11 87 16 40 01/03/18 08:00 98.6 85 16 119/62 (81) 100 98.6 01/03/18 08:00 85 01/03/18 08:00 Mechanical Ventilator 01/03/18 08:00 40 01/03/18 06:44 78 16 40 01/03/18 06:40 85 16 Mechanical Ventilator 40 01/03/18 04:52 92 16 40 01/03/18 04:00 98.2 88 16 120/77 (91) 100 98.2 01/03/18 04:00 87 01/03/18 04:00 40 01/03/18 04:00 Mechanical Ventilator 01/03/18 03:20 92 16 40 01/03/18 01:18 100 17 40 01/03/18 00:00 Mechanical Ventilator 01/03/18 00:00 40 01/03/18 00:00 98.5 86 16 100/60 (73) 100 98.5 01/02/18 23:52 83 01/02/18 23:02 89 16 40 01/02/18 21:23 90 18 40 01/02/18 20:00 Mechanical Ventilator 01/02/18 20:00 98.8 87 16 113/77 (89) 100 98.8 01/02/18 20:00 40 01/02/18 19:48 80 16 Mechanical Ventilator 40 01/02/18 19:48 80 16 40 01/02/18 19:31 83 01/02/18 16:42 92 16 40 01/02/18 16:41 92 01/02/18 16:00 Mechanical Ventilator 01/02/18 16:00 97.7 81 16 113/82 (92) 100 97.7 01/02/18 16:00 40 Intake and Output 01/02/18 01/03/18 19:00 07:00 Intake Total 865.000 ml 1415 ml Output Total 620 ml 500 ml Balance 245.000 ml 915 ml IV Total 825.000 ml 1305 ml Tube Feeding 40 ml 110 ml Output Urine Total 620 ml 500 ml # Bowel Movements 2 4 Laboratory Tests 01/02/18 23:56: Vancomycin Level Trough 15.8H 01/03/18 04:00: White Blood Count 8.4, Red Blood Count 4.61, Hemoglobin 12.6, Hematocrit 38.7, Mean Corpuscular Volume 84, Mean Corpuscular Hemoglobin 27.3, Mean Corpuscular Hemoglobin Concent 32.5, Red Cell Distribution Width 16.8H, Platelet Count 246, Mean Platelet Volume 6.9, Neutrophils (%) (Auto) 76.1H, Lymphocytes (%) (Auto) 15.2L, Monocytes (%) (Auto) 8.1, Eosinophils (%) (Auto) 0.2, Basophils (%) (Auto ) 0.4, Sodium Level 137, Potassium Level 3.5, Chloride Level 104, Carbon Dioxide Level 24, Anion Gap 10, Blood Urea Nitrogen 31H, Creatinine 0.7, Estimat Glomerular Filtration Rate > 60, Glucose Level 115H, Uric Acid 7.1, Calcium Level 8.3L, Phosphorus Level 2.5, Magnesium Level 1.8, Total Bilirubin 0.5, Aspartate Amino Transf (AST/SGOT) 47H, Alanine Aminotransferase (ALT/SGPT) 42, Alkaline Phosphatase 184H, Troponin I 0.242H, Pro-B-Type Natriuretic Peptide 5305H, Total Protein 6.6, Albumin 2.2L, Globulin 4.4, Albumin/Globulin Ratio 0.5L Height (Feet): 5 Height (Inches): 4.00 Weight (Pounds): 152 Rocael Samuels MD Jan 03, 2018 15:48
[2018-01-03 16:00] VITALS: BP 120/67
--- NOTE | 2018-01-03 18:12 | Internal Med Progress Note ---
Subjective Date of Service: Jan 03, 2018 Physician Name ChanelleMiguel Attending Physician Paulo Paredes MD Current Medications Medications (Trade) Dose Ordered Sig/Anthony Route PRN Reason Start Time Stop Time Status Last Admin Dose Admin Acetaminophen (Tylenol) 650 mg Q4H PRN GT FEVER>100.5 01/03/18 08:45 02/02/18 08:44 Albuterol/ Ipratropium (Albuterol/ Ipratropium) 3 ml Q4H PRN HHN Shortness of Breath 01/02/18 12:00 01/06/18 11:59 Cefepime HCl 2 gm/ Dextrose 55 ml @ 110 mls/hr EVERY 12 HOURS IVPB 01/02/18 21:00 01/08/18 22:14 01/03/18 08:44 Dextrose (Dextrose 50%) 25 ml Q30M PRN IV Hypoglycemia 01/02/18 12:15 01/31/18 10:04 Dextrose (Dextrose 50%) 50 ml Q30M PRN IV hypoglycemia 01/02/18 12:15 01/31/18 10:14 Famotidine (Pepcid I.v.) 20 mg Q12HR IVP 01/02/18 21:00 02/01/18 20:59 01/03/18 08:44 Heparin Sodium (Porcine) (Heparin 5000 units/ml) 5,000 units EVERY 12 HOURS SUBQ 01/02/18 21:00 01/31/18 20:59 01/03/18 08:46 Insulin Aspart (NovoLOG) EVERY 6 HOURS SUBQ 01/02/18 12:00 01/31/18 11:29 Lorazepam (Ativan 2mg/ml 1ml) 2 mg Q2H PRN IV For Anxiety 01/02/18 12:00 01/08/18 11:59 Midodrine (Pro-Amatine) 10 mg THREE TIMES A DAY GT 01/02/18 13:00 02/01/18 12:59 01/03/18 17:54 Ondansetron HCl (Zofran) 4 mg Q6H PRN IVP Nausea & Vomiting 01/02/18 12:00 01/31/18 11:59 Polyethylene Glycol (Miralax) 17 gm DAILYPRN PRN GT Constipation 01/03/18 09:30 01/31/18 09:29 Sodium Chloride 1,000 ml @ 50 mls/hr Q20H IVLG 01/03/18 10:30 01/31/18 10:29 01/03/18 10:30 Vancomycin HCl (Vanco rx to dose) 1 ea DAILY PRN MISC PER RX PROTOCOL 01/03/18 09:00 01/31/18 10:14 Vancomycin/Sodium Chloride 250 ml @ 166.667 mls/hr Q12HR@0000,1200 IVPB 01/02/18 12:00 01/07/18 00:00 01/03/18 12:00 Allergies: Coded Allergies: No Known Allergies (Unverified , 01/01/18) ROS Limited/Unobtainable: No Constitutional: Reports: no symptoms Cardiovascular: Reports: no symptoms Respiratory: Reports: shortness of breath Gastrointestinal/Abdominal: Reports: no symptoms Genitourinary: Reports: no symptoms Neurologic/Psychiatric: Reports: no symptoms Subjective 62 YO F admitted with hypoxia, now pneumonia. Cover for Int Med-Dr Paredes. [facility] Objective Last Vital Signs Date Time Temp Pulse Resp B/P (MAP) Pulse Ox O2 Delivery O2 Flow Rate FiO2 01/03/18 16:52 79 23 40 01/03/18 16:00 Mechanical Ventilator 01/03/18 16:00 98.7 120/67 (84) 100 98.7 01/01/18 16:00 50.0 Laboratory Tests Test 01/02/18 23:56 01/03/18 04:00 Vancomycin Level Trough 15.8 ug/mL (5.0-12.0) H White Blood Count 8.4 K/UL (4.8-10.8) Red Blood Count 4.61 M/UL (4.20-5.40) Hemoglobin 12.6 G/DL (12.0-16.0) Hematocrit 38.7 % (37.0-47.0) Mean Corpuscular Volume 84 FL (80-99) Mean Corpuscular Hemoglobin 27.3 PG (27.0-31.0) Mean Corpuscular Hemoglobin Concent 32.5 G/DL (32.0-36.0) Red Cell Distribution Width 16.8 % (11.6-14.8) H Platelet Count 246 K/UL (150-450) Mean Platelet Volume 6.9 FL (6.5-10.1) Neutrophils (%) (Auto) 76.1 % (45.0-75.0) H Lymphocytes (%) (Auto) 15.2 % (20.0-45.0) L Monocytes (%) (Auto) 8.1 % (1.0-10.0) Eosinophils (%) (Auto) 0.2 % (0.0-3.0) Basophils (%) (Auto) 0.4 % (0.0-2.0) Sodium Level 137 MMOL/L (136-145) Potassium Level 3.5 MMOL/L (3.5-5.1) Chloride Level 104 MMOL/L (98-107) Carbon Dioxide Level 24 MMOL/L (21-32) Anion Gap 10 mmol/L (5-15) Blood Urea Nitrogen 31 mg/dL (7-18) H Creatinine 0.7 MG/DL (0.55-1.30) Estimat Glomerular Filtration Rate > 60 mL/min (>60) Glucose Level 115 MG/DL (74-106) H Uric Acid 7.1 MG/DL (2.6-7.2) Calcium Level 8.3 MG/DL (8.5-10.1) L Phosphorus Level 2.5 MG/DL (2.5-4.9) Magnesium Level 1.8 MG/DL (1.8-2.4) Total Bilirubin 0.5 MG/DL (0.2-1.0) Aspartate Amino Transf (AST/SGOT) 47 U/L (15-37) H Alanine Aminotransferase (ALT/SGPT) 42 U/L (12-78) Alkaline Phosphatase 184 U/L (46-116) H Troponin I 0.242 ng/mL (0.000-0.056) Pro-B-Type Natriuretic Peptide 5305 pg/mL (0-125) H Total Protein 6.6 G/DL (6.4-8.2) Albumin 2.2 G/DL (3.4-5.0) L Globulin 4.4 g/dL Albumin/Globulin Ratio 0.5 (1.0-2.7) L Microbiology Date/Time Source Procedure Growth Status 01/01/18 10:30 Blood Blood Culture - Preliminary NO GROWTH AFTER 24 HOURS Resulted 01/01/18 10:00 Blood Blood Culture - Preliminary NO GROWTH AFTER 24 HOURS Resulted 01/01/18 03:30 Blood Blood Culture - Preliminary NO GROWTH AFTER 48 HOURS Resulted 01/01/18 03:15 Blood Blood Culture - Preliminary NO GROWTH AFTER 48 HOURS Resulted 01/02/18 18:55 Sputum Gram Stain - Final Resulted 01/02/18 18:55 Sputum Sputum Culture Pending Resulted 01/01/18 05:00 Nasal Nares MRSA Culture - Final NO METHICILLIN RESISTANT STAPH AUREUS... Complete 01/02/18 17:00 Urine,Clean Catch Urine Culture - Preliminary NO GROWTH Resulted 01/01/18 05:00 Rectum VRE Culture - Final Enterococcus Faecalis - Vre Complete 01/01/18 05:00 Rectum - Final NO CARBAPENEM-RESISTANT ENTEROBACTERI... Complete Intake and Output 01/02/18 01/03/18 19:00 07:00 Intake Total 865.000 ml 1415 ml Output Total 620 ml 500 ml Balance 245.000 ml 915 ml IV Total 825.000 ml 1305 ml Tube Feeding 40 ml 110 ml Output Urine Total 620 ml 500 ml # Bowel Movements 2 4 Objective General Appearance: WD/WN, lethargic EENT: PERRL/EOMI, normal ENT inspection Neck: non-tender, normal alignment, supple Cardiovascular: normal peripheral pulses, normal rate, regular rhythm, no gallop/murmur, no JVD Respiratory/Chest: Mech Vent; respiratory distress, crackles/rales, rhonchi - bilaterally, expiratory wheezing Abdomen: normal bowel sounds, non tender, soft, no organomegaly, no mass Extremities: normal range of motion Skin: normal pigmentation, warm/dry Assessment/Plan Problem List: (1) Elevated troponin Assessment & Plan: See cardiology note. (2) Pneumonia Assessment & Plan: Continue vanco and cefepime per ID (3) Acute on chronic respiratory failure (4) Tracheostomy complication (5) Respiratory distress Assessment & Plan: Chronic vent dep (6) Diabetes mellitus (7) Anoxic brain damage (8) Feeding by G-tube (9) Seizure disorder Miguel Roca MD Jan 03, 2018 18:12
[2018-01-03 20:00] VITALS: BP 103/71
[2018-01-03] MEDS ORDERED: Tubing IV Secondary IV ONE ×2 (23:09)
--- NOTE | 2018-01-05 14:58 | Discharge Summary ---
Discharge Summary Discharge Summary _ DATE OF ADMISSION: 01/01/2018 DATE OF DISCHARGE: 01/03/2018 REASON FOR ADMISSION: 62 years old female,resident of detention facility ,with past medical history of anoxic brain damage, respiratory failure, tracheostomy status, dysphagia, G-tube feeding, contractures, diabetes mellitus, seizure disorder, GERD ,was on referred for evaluation for hypoxemia. In ED, patient was found to be febrile tachycardic and hypoxic. Laboratory workup revealed leukocytosis with WBC 15.7, stable hemoglobin and hematocrit. Sodium 134 potassium 3.0 . BUN 34 creatinine 0.7. Glucose 121 AST 58 . Troponin elevated 0.085. ECG with sinus tachycardia , no acute ischemic changes . Albumin 2.5. Urinalysis with proteinuria, but no evidence of UTI. Chest x-ray revealed probable bibasilar atelectasis with underlying cardiomegaly. Possible developing retrocardiac infiltrate. After change of tracheal collar and suctioning, patient appeared more comfortable with minimal secretions. Pulse oximetry reached 100%. However patient was persistently tachycardic and rectal temperature was 103. Septic workup initiated . Patient admitted with diagnoses of acute on chronic respiratory failure, tracheostomy complication, elevated troponin, sepsis, pneumonia, diabetes mellitus, anoxic brain damage, feeding by G-tube, seizure disorder. CONSULTANTS: fleet maintenance foreman dr. Campuzano pulmonary Dr. Walter ID specialist Dr. Johns mortgage manager Dr. Samuels HOSPITAL COURSE: Patient initially admitted to ICU. Blood pressure was trending down-77/57. Patient started on generous IV hydration. Hemodynamic status was closely monitored. Blood pressure was supported with midodrine and IV fluids. Albumin boluses were provided . Pressor was on standby . Blood pressure stabilized with IV hydration and Midodrine. Patient was connected to ventilator. Baseline ABG was obtained. Settings were titrated as needed. Ventilator support and tracheostomy care provided. Pulmonary toilet provided. Patient started on empiric antibiotics. Infectious disease specialist closely followed. Blood culture were negative. Urine culture were negative. Sputum culture revealed gram-negative bacilli, 2 different species. Patient was on IV antibiotics as per ID specialist recommendation. Fevers resolved. Validation Consultant closely followed. Serial troponin remained elevated, but flat. Echocardiogram revealed ejection fraction 55% with mild left ventricular hypertrophy. Moderate to severe right atrial and right ventricular enlargement suggestive of increased pressure and volume overload. Moderate tricuspid regurgitation and moderate aortic insufficiency . Right ventricular systolic pressure of 71, consistent with severe pulmonary hypertension. Lipid panel stable. Per fleet maintenance foreman, no indication for pericardiocentesis. Hemodynamics were closely monitored. Troponin downtrending. Per fleet maintenance foreman, no indication for catheterization or stress test. Blood pressure was closely monitored, remained stable with midodrine and hydration continued to increased intracardiac pressures. Urine output was closely monitored. Patient subsequently was transferred to direct observational unit. [employer] Winder closely followed. Electrolytes corrected as needed. Renal parameters were closely monitored. Nephrotoxins were avoided. Bowel regimen instituted. DVT and GI prophylaxis provided. Blood sugar was managed with sliding scale insulin. Strict aspiration precautions were maintained. G-tube site care provided provided. G-tube feeding was continued, and patient was able to tolerate tube feeding . Seizure precautions maintained; phenobarbital level was therapeutic. No evidence of seizure activity while in the hospital. Patient was stable for transfer to [facility] for further management . 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 I have been assigned to dictate discharge summary for this account. I was not involved in the patient's management. Cristina Garcia NP Jan 05, 2018 14:58
== END 2018-01-03 23:10 | disposition short-term general hospital (02) | DRG 871 ==
LOC: EDBD 03:06 → EMR 04:23 → 2W 04:33 → EDBEDREQ 05:35 → EDBEDREQSVC 06:37 → EDBEDREQ 06:37 → ICU 06:50 → 2W 01-02 11:54
PROC: 5A1945Z Respiratory Ventilation, 24-96 Consecutive Hours (ICD-10-PCS; principal; 2018-01-01)
DX: A41.9 Sepsis, unspecified organism (principal); R65.21 Severe sepsis with septic shock; J96.20 Acute and chronic respiratory failure, unspecified whether with hypoxia or hypercapnia; J18.9 Pneumonia, unspecified organism; Z43.1 Encounter for attention to gastrostomy; G93.1 Anoxic brain damage, not elsewhere classified; Z99.11 Dependence on respirator [ventilator] status; R40.3 Persistent vegetative state; Y95 Nosocomial condition; Z43.0 Encounter for attention to tracheostomy; I36.1 Nonrheumatic tricuspid (valve) insufficiency; I35.1 Nonrheumatic aortic (valve) insufficiency; E11.9 Type 2 diabetes mellitus without complications; G40.909 Epilepsy, unspecified, not intractable, without status epilepticus; M24.50 Contracture, unspecified joint; E88.09 Other disorders of plasma-protein metabolism, not elsewhere classified; K21.9 Gastro-esophageal reflux disease without esophagitis; E87.8 Other disorders of electrolyte and fluid balance, not elsewhere classified; R13.10 Dysphagia, unspecified
CPT/HCPCS: 36415; 36600; 51702; 71045; 76700; 80053; 80061; 80150; 80184; 80202; 81003; 82533; 82550; 82607; 82728; 82746; 82803; 82962; 82977; 83036; 83540; 83550; 83605; 83735; 83880; 84100; 84300; 84443; 84484; 84550; 85007; 85025; 85610; 86140; 87040; 87070; 87081; 87086; 87181; 87205; 93005; 93306; 94002; 94003; 94664; 96361; 96365; 96367; 99291; J1815